=== PATIENT | female | born 1945 | race Caucasian/White ===

== ENCOUNTER 2019-01-22 06:26 | Day surgery (SDC) | payer OTHER ==
[2019-01-22] MEDS ORDERED: Ringers Lactate 1,000 ML IV ONE (06:51)
[2019-01-22] MEDS ORDERED: propofoL 200 MG/20 ML VIAL IV ONE (08:30)
[2019-01-22] MEDS ORDERED: LIDOCAINE 1% MPF 5 ML VIAL ONE (08:30)
--- NOTE | 2019-01-22 09:15 | ENDO RPT ---
[address], [address] EGD PROCEDURE REPORT EXAM DATE: 01/22/2019 PATIENT NAME: Sabrina Pool MR#: [id number] BIRTHDATE: 1945 ATTENDING: Kaleb Daniel Dr STATUS: outpatient YIELD ANALYST: Agustina Wahl INDICATIONS: The patient is a 73 yr old Female here for an EGD due to dysphagia, abnormal modified barium swallow / esophagram revealing an hypertrophied cricopharyngeal muscle / bar PROCEDURE PERFORMED: EGD with injection of Botox MEDICATIONS: Per Anesthesia. TOPICAL ANESTHETIC: none CONSENT: The patient understands the risks and benefits of the procedure and understands that these risks include, but are not limited to: sedation, allergic reaction, infection, perforation and/or bleeding. Alternative means of evaluation and treatment include, among others: physical exam, x-rays, and/or surgical intervention. The patient elects to proceed with this endoscopic procedure. DESCRIPTION OF PROCEDURE: During intra-op preparation period all mechanical medical equipment was checked for proper function. Hand hygiene and appropriate measures for infection prevention was taken. Procedure, possible complications, and alternatives including but not limited to the possibility of bleeding, perforation, tear, infection, sepsis, need for surgery, need for blood transfusion, and anesthesia related complications were explained to the patient. After the risks, benefits and alternatives of the procedure were thoroughly explained, Informed consent was verified, confirmed and timeout was successfully executed by the treatment team. The patient was placed in the left lateral position. The patient was anesthetized with topical anesthesia. Through the anesthetized oropharyngeal area, the scope was passed without any difficulty. The EG-[id number] ([id number]) endoscope was introduced through the mouth and advanced to the second portion of the duodenum. Retroflexed views revealed no abnormalities. The gastroscope was then slowly withdrawn and removed. 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 ADVERSE EVENTS: There were no complications. 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 acid suppression therapy 2. anti-reflux regimen REPEAT EXAM: Kaleb Daniel Dr eSigned: Kaleb Daniel Dr 01/22/2019 9:14 AM cc: Kaleb Stevenson CPT CODES: ICD9 CODES: PATIENT NAME: Sabrina Pool MR#: [id number]
[2019-01-22 09:32] VITALS: BP 104/51; TEMP 97.2; O2SAT 99
== END 2019-01-22 09:32 | disposition home or self-care (01) ==
LOC: OR 06:26
PROVIDERS: ATTEND Internal Medicine Gastroenterology
PROC: 3E0G8GC Introduction of Other Therapeutic Substance into Upper GI, Via Natural or Artificial Opening Endoscopic (ICD-10-PCS; principal; 2019-01-22 08:15)
DX: K22.2 Esophageal obstruction (principal); K21.9 Gastro-esophageal reflux disease without esophagitis; D50.9 Iron deficiency anemia, unspecified; K50.90 Crohn's disease, unspecified, without complications; M81.0 Age-related osteoporosis without current pathological fracture; Z88.6 Allergy status to analgesic agent; Z90.49 Acquired absence of other specified parts of digestive tract; Z85.828 Personal history of other malignant neoplasm of skin; Z87.891 Personal history of nicotine dependence
CPT/HCPCS: 43236; J2704; J7120

== ENCOUNTER 2021-02-01 05:29 | Day surgery (SDC) | payer OTHER ==
[2021-01-28 13:57] LABS: Absolute Lymphocytes (CBC) 1.1 K/uL (0.7-4.9); Basophils % 0.5 % (0-1.3); Lymphocytes % 12.7 % (15.3-44.8); MPV 8.3 fL (7.6-11.3)
--- NOTE | 2021-01-28 13:58 | RAD REPORT ---
EXAM DESCRIPTION: RAD - Chest Pa And Lat (2 Views) - 01/28/2021 1:53 pm CLINICAL HISTORY: preop COMPARISON: Chest Pa And Lat (2 Views) dated 01/28/2019; Chest Pa And Lat (2 Views) dated 05/11/2017; Chest Pa And Lat (2 Views) dated 11/18/2016; Chest Pa And Lat (2 Views) dated 09/29/2016 FINDINGS: Lines: None. Lungs: No evidence of edema or pneumonia. Emphysema. Pleural: No significant pleural effusions or pneumothorax. Cardiac: The heart size is within normal limits. Bones: No acute fractures. Other: IMPRESSION: Emphysema without superimposed acute process.
[2021-01-28 14:07] LABS: Protime INR 0.9
[2021-01-28 14:18] LABS: Potassium 4.2 mmol/L (3.5-5.1)
--- NOTE | 2021-01-30 17:03 | EKG ---
Test Date: 2021-01-28 Test Time: 13:00:50 Gear Changer: MYCHAL MEASUREMENT RESULTS: Intervals: Rate: 69 LA: 130 QRSD: 76 QT: 388 QTc: 415 [place]: P: 54 LA: 130 QRS: 35 T: 54 INTERPRETIVE STATEMENTS: Normal sinus rhythm Normal ECG Compared to ECG 01/30/2019 11:51:01 No significant changes Electronically Signed On 01-30-21 17:00:15 RIVETER PORTABLE MACHINE by Roc Raphael
[2021-02-01] MEDS ORDERED: CEFAZOLIN/NS 1gm 1 GM/50 ML BAG ONE (05:33)
[2021-02-01] MEDS ORDERED: Ringers Lactate 1,000 ML IV ONE ×2 (05:33→08:33)
[2021-02-01] MEDS ORDERED: LIDOCAINE 1% MPF 5 ML VIAL ONE (06:01)
[2021-02-01] MEDS ORDERED: FENTANYL CITR 100 MCG/2 ML ONE (06:01)
[2021-02-01] MEDS ORDERED: dexAMETHasone 4 MG/ML VIAL ONE (06:02)
[2021-02-01] MEDS ORDERED: MIDAZOLAM HCL 2 MG/2 ML INJ ONE (06:02)
[2021-02-01] MEDS ORDERED: ROPLVACAINE HCL 40 ML ONE (06:02)
[2021-02-01] MEDS ORDERED: propofoL 200 MG/20 ML VIAL IV ONE (06:53)
[2021-02-01] MEDS ORDERED: LIDOCAINE 2% MPF 5 ML VIAL ONE (06:54)
[2021-02-01] MEDS ORDERED: EPHEDRINE SULF 50 MG/ML VIAL ONE (07:35)
--- NOTE | 2021-02-01 08:29 | P.BOP ---
Preoperative diagnosis: left distal radius fracture Postoperative diagnosis: same Primary procedure: ORIF left distal radius fracture Lawn Specialist: NONE,NONE Estimated blood loss: 5 cc Specimen: none Findings: see dictation Anesthesia: General Complications: None Implants: Acumed 3 hole distal radius locking plate Fluids & blood products: TT: 43 mins @ 250 mmHg Transferred to: Recovery Room Condition: Good
[2021-02-01 08:52] VITALS: O2SAT 97
--- NOTE | 2021-02-01 09:09 | RAD REPORT ---
EXAM DESCRIPTION: RAD - Wrist Left 2 View - 02/01/2021 9:03 am CLINICAL HISTORY: s/p ORIF of L wrist COMPARISON: Wrist Left 2 View dated 02/01/2021; Wrist Left 3 View dated 04/03/2018 FINDINGS/IMPRESSION: Status post plate and screw fixation of a distal radial fracture. Alignment is anatomic. No evidence of immediate hardware complications. Ulnar styloid fracture also noted.
[2021-02-01 09:57] VITALS: BP 110/65; TEMP 97
--- NOTE | 2021-02-01 10:32 | RAD REPORT ---
EXAM DESCRIPTION: RAD - Wrist Left 2 View - 02/01/2021 9:03 am CLINICAL HISTORY: ORIF LEFT DISTAL RADIUS FX COMPARISON: Wrist Left 3 View dated 04/03/2018 FINDINGS/IMPRESSION: Fourteen intraoperative fluoroscopic images were submitted showing ORIF of the distal radius with plate and screw. Fluoro time: 0.1 minutes Dose: 0.283 mGy
--- NOTE | 2021-02-02 10:06 | OP ---
Date of Procedure: 02/01/2021 Surgeon: Stephane Yanez MD Preoperative Diagnosis: Left distal radius fracture. Postoperative Diagnosis: Left distal radius fracture. Procedure Performed: Open reduction and internal fixation, left distal radius fracture. Anesthesia: General LMA. Fluids: Per Anesthesia record. Estimated Blood Loss: 5 cc. Complications: None. Implants: A 3-hole Acumed narrow distal radius locking plate. Tourniquet Time: 43 minute at 250 mmHg. Indication For Procedure: Sabrina is a 75-year-old female who presented to my clinic with signs, symptom s and x-ray findings consistent with a displaced unstable distal radius fracture. I discussed with t perry patient at length risks and benefits associated with operative and nonoperative treatment. She ex pressed understanding and elected to proceed with operative treatment. Description Of Procedure: After informed consent was obtained, the patient was identified in the pre operative holding area. The left upper extremity was marked. The patient was then brought to PACU, where she underwent a left-sided interscalene block for postoperative anesthesia. She was then taken to the operating room, transferred to the operating table in a supine fashion, placed under general LMA anesthesia. The left upper extremity was then prepped and draped in the usual sterile fashion. A time-out was initiated. The correct patient and procedure were confirmed and identified. The mina ent did receive her preoperative prophylactic antibiotic. The left upper extremity was then exsangui nated using an Esmarch and the tourniquet was inflated to 250 mmHg. Approximately, a 10 cm longitudi nal incision was made over the FCR tendon consistent with a volar approach to the distal radius. FCR tendon sheath was noted. It was opened. FCR tendon was gently retracted radially. The floor of th e tendon sheath was then opened using Metzenbaum. Blunt dissection was then taken down to the distal radius. The pronator quadratus was encountered, elevated off the distal radius using a 15 blade owen vator. The fracture was identified. The fracture was then reduced using traction and manipulation a nd K-wire was then placed to hold temporary reduction of the fracture. Fluoroscopy was then used to ensure proper reduction was maintained. A 3-hole narrow Acumed distal radius locking plate was then placed on the distal radius. Proper positioning was then confirmed using fluoroscopy and was pinned into position. The 3.5 cortical shaft screw was placed to hold the reduced plate to the fracture to the proximal segment followed by placement of 5 distal locking screws using unicortical locking fixat ion. Two remaining proximal shaft screws were then placed using 3.5 cortical screws. Fluoroscopy wa s then used to ensure proper reduction and placement of the screws which was confirmed. Wound was th en irrigated thoroughly with normal saline. Subcutaneous tissue was approximated using a 2-0 Vicryl. Skin was approximated using a 3-0 nylon. Sterile dressings were applied. The patient was placed i n a volar splint, awakened, and transferred to PACU in stable condition. Postoperative Plan: She will be nonweightbearing of the left upper extremity. She will follow up in clinic 2 weeks for wound check and suture removal. CV/MODL Voice ID: [id number] Report ID: [id number]
== END 2021-02-01 10:01 | disposition home or self-care (01) ==
LOC: OR 05:29
PROVIDERS: ATTEND Orthopaedic Surgery Sports Medicine
PROC: 0PSJ04Z Reposition Left Radius with Internal Fixation Device, Open Approach (ICD-10-PCS; principal; 2021-02-01 07:00)
DX: S52.502A Unspecified fracture of the lower end of left radius, initial encounter for closed fracture (principal); Z20.822 Contact with and (suspected) exposure to COVID-19
CPT/HCPCS: 93005; 85025; 80048; 36415; 85610; 85730; 71046; 73100 ×2; 25607; U0003; J2704; J1100; J2250; J3010; J2795; J0690; J7120 ×2

== ENCOUNTER 2022-06-30 19:11 | Emergency (ER) | payer OTHER ==
--- OUTSIDE RECORDS SUMMARY | 2022-06-30 19:16 | XMS REPORT | Continuity of Care Document ---
:1945 [facility] t Address [address] [facility] [address] [place] [address] Care Team Providers Name Role Phone Asked, No Pcp Primary Care Physician Unavailable Kaleb Stevenson Attending Clinician Unavailable STEPHANE BURNHAM Attending Clinician Unavailable MARIA C CONN Attending Clinician Unavailable Yoel Gallego Attending Clinician Unavailable DIONTE REYES Attending Clinician Unavailable 2, Adc Infusion Chair Attending Clinician Unavailable Maria C Conn MD Attending Clinician Doctor Unassigned, [place] Attending Clinician Unavailable YOEL GALLEGO Attending Clinician Unavailable Dionte Reyes MD Attending Clinician [phone] Stephane Burnham MD Attending Clinician Only, Adc Test Attending Clinician Unavailable Pob, Adc Lab Main Attending Clinician Unavailable STEPHANE BURNHAM Admitting Clinician Unavailable Yoel Gallego Admitting Clinician Unavailable Stephane Burnham MD Admitting Clinician Payers Payer Name Policy Type Policy Number Effective Date Expiration Date S carmelita [employer]ET[employer] MEDICARE ADV [id number] 2014 00:00:00 [employer] DENEEN PPO 5 [id number] 2021 00:00:00 Problems This patient has no known problems. Allergies, Adverse Reactions, Alerts Allergy Allergy Status Severity Reaction(s) Onset Inactive Treating Comm ents Source Name Type Date Date Clinician FERICIT DA Active U 'PASSED OUT' [facility] 1-16 [facility] 00:[facility]: [facility] [place] Hydrocod Propensi Active Itching Unive rs one ty to 04-07 ity of adverse 00:00: [place] reaction 00 Medical s Branch Oxycodon Propensi Active Rash Univer s e-Aspiri ty to 04-07 ity of n adverse 00:00: [place] reaction 00 Medical s Branch HYDROCOD DRUG Active ITCHING Univers ONE INGREDI 04-07 ity of 00:00: [place] 00 Medical Branch OXYCODON DRUG Active Rash Univers E-ASPIRI 04-07 ity of N 00:00: [place] 00 Medical Branch Hydrocod Propensi Active Other (See Me thodi one ty to Comments) 09-08 adverse 00:00: Hospita reaction 00 l s to drug Oxycodon Propensi Active Rash Method i e-Aspiri ty to 09-08 n adverse 00:00: Hospita reaction 00 l s to drug hydrocod DA Active U [facility] one 1-21 Woman's 00:00: [facility] [place] oxycodon DA Active U [facility] e 1-21 Woman[facility] 00:00: [facility] [place] .TUAN DA Active U PUS AND 2007- [facility] SWELLING 0-29 Woman[facility] 00:00: [facility] [place] HYDROCOD DA Active U ITCH 2007-02 [facility] ONE 0-29 Woman's 00:00: [facility] 00 [facility] [place] No Known DA Active U 2007-02 [facility] Contrast 0-29 Woman's Allergie 00:00: Hospita s 00 l of [place] No Known DA Active U 2007- [facility] Food 0-29 Woman's Allergie 00:00: [facility]osp[facility] s [facility] [place] PERCODAN DA Active U ITCH 2007- [facility] 0-29 Woman's 00:00: [facility] 00 [facility] [place] NO KNOWN Drug Active Univers ALLERGIE Class ity of S [facility] Social History Social Habit Start Date Stop Date Quantity Comments Source History of tobacco Current smoker Un iversity of use [facility] Gender [facility] Exposure to 2022-02-21 2022-03-03 Not sure [place] of SARS-CoV-2 (event) 00:00:00 11:34:00 [facility] Tobacco use and 2020-04-07 2020-04-07 Smokeless Universit y of exposure 00:00:00 00:00:00 tobacco non-user [facility] [place] [facility] Tobacco Comment 2020-04-07 2020-04-07 quit 17 years Univer sity of 00:00:00 00:00:00 ago [facility] Sex Assigned At [birth year] [facility] Smoking Status Start Date Stop Date Source Tobacco smoking [facility] consumption unknown Ex-smoker 2020-04-07 00:00:00 2020-04-07 [place] [facility] f [place] 00:00:00 [facility] Branch Medications Ordered Filled Start Stop Current Ordering Indication Dosage Frequency Signature Comments Components Source Medication Medication Date Date Medication? Clinician (SIG) Name Name vedolizumab 2022- No [id number] 300mg 300 mg, IV Univers (ENTYVIO) 03-03 Infusion, ity of 300 mg in 17:36: 18:58 ONCE, 1 [place] NaCl 0.9% 00 :00 dose, On Medica l (NS) 250 mL Susan Branch IV infusion 03/03/22 at 1145, Administer over 30 Minutes, 250 mL glucagon 2021-02- No 1mg Methodi injection 1 02-20 st mg 21:45: 21:51 Hospita 00 :00 l glucagon 2021-02- No 1mg Methodi injection 1 02-20 st mg 21:45: 21:51 Hospita 00 :00 l glucagon 2021-02- No 1mg Methodi injection 1 02-20 st mg 21:45: 21:51 Hospita 00 :00 l glucagon 2021-02- No 1mg Methodi injection 1 02-20 st mg 21:45: 21:51 Hospita 00 :00 l temazepam Yes 30mg Take 30 mg Un yudi 30 mg 2-24 by mouth ity of capsule 22:50: at bedtime [place] 36 as needed. Medical Branch nortriptyli Yes 25mg Take 25 mg Univers ne 25 mg 2-24 by mouth 3 ity o f capsule 22:50: (three) [place] 36 times Medical daily. Branch famotidine Yes Take by [facility] ers (PEPCID AC 2-24 mouth. ity of ORAL) 22:50: [place] 36 [facility] loperamide Yes Take by [facility] ers HCl 2-24 mouth. ity of (IMODIUM 22:50: [place] A-D ORAL) 36 [facility] water for Yes PRN, Univers irrigation 2-24 Starting ity o f irrigation 21:54: Mon [place] solution 00 04/08/20 at Medic al [facility]4, [place] Until Discontinu ed, Routine, Intra-op sodium Yes PRN, Univers chloride 2-24 Starting ity of (NS) 21:54: Mon [place] injection 00 04/08/20 at [facility] kelly 1554[facility] Until Discontinu ed, Routine, Intra-op neomycin-po Yes PRN, Univer s lymyxin-dex 2-24 Starting ity of amethasone 21:53: Mon [place] (MAXITROL) 04/08/20 at [facility] ical [address] [place] [address] mg/g-10,000 Until unit/g-0.1 Discontinu % ed, ophthalmic Routine, ointment Intra-op gentamicin Yes PRN, Univers injection 2-24 Starting ity of 21:53: Mon [place] 00 04/08/20 at [place] [id number] Until Discontinu ed, KRISHNA, Intra-op carbachoL Yes PRN, Univers (MIOSTAT) 2-24 Starting ity of 0.01 % 21:53: Mon [place] intraocular 00 04/08/20 at Wy dical injection 1553[facility] Until Discontinu ed, Routine, Intra-op EPINEPHrine Yes PRN, Univer s 1:1,000 (1 2-24 Starting ity o f mg/mL) 21:52: Mon [place] (ADRENALIN) 00 04/08/20 at Wy dical injection 1552[facility] Until Discontinu ed, Routine, Intra-op DUOVISC 0 Yes PRN, Univers (DUOVISC 2-24 Starting ity of VISCO 21:52: Wed [place] ELASTIC) 3 00 04/08/20 at [facility] ical %-4 %(0.5 1552, Branch mL) 1 % Until (0.55 mL) Discontinu intraocular ed, injection Routine, Intra-op ceFAZolin Yes PRN, Univers (ANCEF) 2-24 Starting ity of injection 21:47: [facility] 04/08/20 at [facility] 1547, [place] Until Discontinu ed, KRISHNA, Intra-op balanced Yes PRN, Univers salt irrig 24 Starting ity o f soln comb1 21:47: [facility] (BSS PLUS) 00 04/08/20 at [facility] ical ophthalmic 1547, [place] solution Until 500 mL bag Discontinu ed, Routine, Intra-op eye block Yes PRN, Univers syringe 11 04-08 Starting ity o f mL 21:46: Mon [place] 04/08/20 at [facility] 1546, [place] Until Discontinu ed, Intra-op Hyaluronida Yes PRN, Univer s se, Human 04-08 Starting ity of Recomb. 21:46: Mon [place] (HYLENEX) 04/08/20 at [facility] injection 1546, [place] Until Discontinu ed, Routine, Intra-op mydriatic 2020- No .5mL 0.5 mL, [facility] ers #5 04-08 Right Eye, ity of ophthalmic 20:00: 19:53 ONCE, 1 Marcel as solution 00 :00 dose, Mon Medica l 0.5 mL 04/08/20 at [place] syringe 1400, Routine, DSU Pre-op lactated 2021- No 1000mL at 42 Univ rs ringers IV - 02-24 mL/hr, ity of infusion 19:45: 19:53 1,000 mL, Marcel as 1,000 mL 00 :00 IV Medical Infusion, [place] ONCE, 1 dose, 04/08/20 at 1345, Routine, DSU Pre-op famotidine Yes Take by [facility] ers (PEPCID AC -24 mouth. ity of ORAL) 16:50: [address] loperamide Yes Take by [facility] ers HCl -24 mouth. ity of (IMODIUM 16:50: [place] A-D ORAL) [address] [place] [address] temazepam 0 Yes 30mg Take 30 mg Un yudi 30 mg 2-24 by mouth ity of capsule 16:50: at bedtime [place] 36 as needed. Medical Branch nortriptyli 0 Yes 25mg Take 25 mg Univers ne 25 mg 2-24 by mouth 3 ity o f capsule 16:50: (three) [place] 36 times Medical daily. Branch famotidine 0 Yes Take by Univ ers (PEPCID AC 2-24 mouth. ity of ORAL) 16:50: [place] 36 Medical Branch loperamide 0 Yes Take by Univ ers HCl 2-24 mouth. ity of (IMODIUM 16:50: [place] A-D ORAL) 36 Medical Branch temazepam 0 Yes 30mg Take 30 mg Un yudi 30 mg 2-24 by mouth ity of capsule 16:50: at bedtime [place] 36 as needed. Medical Branch nortriptyli 0 Yes 25mg Take 25 mg Univers ne 25 mg 2-24 by mouth 3 ity o f capsule 16:50: (three) [place] 36 times Medical daily. Branch famotidine 0 Yes Take by Univ ers (PEPCID AC 2-24 mouth. ity of ORAL) 16:50: [place] 36 Medical Branch loperamide 2020-0 Yes Take by Univ ers HCl 2-24 mouth. ity of (IMODIUM 16:50: [place] A-D ORAL) 36 Medical Branch temazepam 0 Yes 30mg Take 30 mg Un yudi 30 mg 2-24 by mouth ity of capsule 16:50: at bedtime [place] 36 as needed. Medical Branch nortriptyli 0 Yes 25mg Take 25 mg Univers ne 25 mg 2-24 by mouth 3 ity o f capsule 16:50: (three) [place] 36 times Medical daily. Branch famotidine 2020-0 Yes Take by Univ ers (PEPCID AC 2-24 mouth. ity of ORAL) 16:50: [place] 36 Medical Branch loperamide 2020-0 Yes Take by Univ ers HCl 2-24 mouth. ity of (IMODIUM 16:50: [place] A-D ORAL) 36 Medical Branch temazepam 2020-0 Yes 30mg Take 30 mg Un yudi 30 mg 2-24 by mouth ity of capsule 16:50: at bedtime [place] 36 as needed. Medical Branch nortriptyli Yes 25mg Take 25 mg Univers ne 25 mg 2-24 by mouth 3 ity o f capsule 16:50: (three) [place] 36 times Medical daily. Branch dexamethaso Yes PRN, Univer s ne 2-24 Starting ity of (DECADRON 06:03: Wed [place] PHOSPHATE) 00 04/08/20 at Med ical injection 0003, Branch Until Discontinu ed, Routine, Intra-op Vital Signs Vital Name Observation Time Observation Value Comments Source Systolic blood 2022-03-03 17:33:00 132 mm[Hg] Univer sity of [facility] Diastolic blood 2022-03-03 17:33:00 55 mm[Hg] Unive rsity of [facility] Heart rate 2022-03-03 17:33:00 70 /min [facility] Body temperature 2022-03-03 17:33:00 36.33 Jessica [facility] Respiratory rate 2022-03-03 17:33:00 18 /min [facility] Body height 2022-03-03 17:33:00 157.5 cm [facility] Body weight 2022-03-03 17:33:00 56.246 kg [facility] BMI 2022-03-03 17:33:00 22.68 kg/m2 [facility] Oxygen saturation in 2022-03-03 17:33:00 99 /min University of Arterial blood by [place] [facility] Pulse oximetry Branch Systolic blood 2020-04-08 22:30:00 121 mm[Hg] Univer sity of [facility] Diastolic blood 2020-04-08 22:30:00 56 mm[Hg] Unive rsity of [facility] Heart rate 2020-04-08 22:30:00 65 /min [facility] Respiratory rate 2020-04-08 22:30:00 15 /min [facility] Oxygen saturation in 2020-04-08 22:30:00 99 /min University of Arterial blood by [place] [employer] kelly Pulse oximetry Branch Body temperature 2020-04-08 22:25:00 36.67 Jessica Univ ersity [facility] [place] [facility] Body height 2020-04-03 15:26:00 157.5 cm [facility] Body weight 2020-04-03 15:26:00 50.803 kg [facility] BMI 2020-04-03 15:26:00 20.49 kg/m2 [facility] Body height 2021-12-21 21:43:00 154.9 cm [facility] Body weight 2021-12-21 21:43:00 52.617 kg [facility] BMI 2021-12-21 21:43:00 21.92 kg/m2 [facility] Procedures Procedure Date / Time Performed Performing Clinician Vinnie lam [id number] 2022-06-14 00:00:00 [facility] [id number] 2022-06-13 00:00:00 [facility] [id number] 2022-06-13 00:00:00 [facility] [id number] 2022-06-13 00:00:00 [facility] [id number] 2022-06-13 00:00:00 [facility] [id number] 2022-06-13 00:00:00 [facility] INFUSION THERAPY 2022-03-03 06:01:00 Doctor Unassigned, No Unive [facility] PHYSICIAN ORDERS 2022-02-15 06:01:00 Doctor Unassigned, No Unive [facility] MRI PELVIS W WO 2021-12-21 22:01:[address] [facility] CONTRAST Jeff MRI ABDOMEN W WO 2021-12-21 22:01:[address] [facility] SHERON Aguilar REPORT OF 2021-12-02 05:01:00 [facility] 2020-04-06 22:07:17 Doctor Unassigned, No [facility] Plan of Care Planned Activity Planned Date Details Comments Source Future Scheduled 2022-06-28 COVID-19 VACCINE (#1) [facility] Test 09:19:26 [code = COVID-19 VACCINE (#1)] Future Scheduled 2022-06-28 65+ [facility]OCOCCAL [facility] Test 09:19:26 VACCINE (1 - PCV) [code = 65+ PNEUMOCOCCAL VACCINE (1 - PCV)] Future Scheduled 2022-06-28 [facility] C [facility] Test 09:19:26 (procedure) [code = 065498396] Future Scheduled 2022-06-28 SHINGLES VACCINES (1 Met [facility] Hospital Test 09:19:26 of 2) [code = SHINGLES VACCINES (1 of 2)] Future Scheduled 2022-06-28 COLONOSCOPY SCREENING [facility] Test 09:19:26 [code = COLONOSCOPY SCREENING] Future Scheduled 2022-06-28 INFLUENZA VACCINE [facility] Test 09:19:26 [code = INFLUENZA VACCINE] Future Scheduled 2022-05-17 COVID-19 VACCINE (#1) [facility] Test 13:56:35 [code = COVID-19 VACCINE (#1)] Future Scheduled 2022-05-17 65+ [facility]OCOCCAL [facility] Test 13:56:35 VACCINE (1 - PCV) [code = 65+ PNEUMOCOCCAL VACCINE (1 - PCV)] Future Scheduled 2022-05-17 Hep[facility] C screening [facility] Test 13:56:35 (procedure) [code = 598449021] Future Scheduled 2022-05-17 SHINGLES VACCINES (1 [facility] Hospital Test 13:56:35 of 2) [code = SHINGLES VACCINES (1 of 2)] Future Scheduled 2022-05-17 COLONOSCOPY SCREENING [facility] Test 13:56:35 [code = COLONOSCOPY SCREENING] Future Scheduled 2022-05-17 INFLUENZA VACCINE Method ist Hospital Test 13:56:35 [code = INFLUENZA VACCINE] Future Scheduled 2022-05-17 COVID-19 VACCINE (#1) [facility] Test 13:56:35 [code = COVID-19 VACCINE (#1)] Future Scheduled 2022-05-17 65+ [facility]UMOCOCCAL [facility] Test 13:56:35 VACCINE (1 - PCV) [code = 65+ PNEUMOCOCCAL VACCINE (1 - PCV)] Future Scheduled 2022-05-17 [facility] C screening [facility] Test 13:56:35 (procedure) [code = 157634356] Future Scheduled 2022-05-17 SHINGLES VACCINES (1 [facility] Hospital Test 13:56:35 of 2) [code = SHINGLES VACCINES (1 of 2)] Future Scheduled 2022-05-17 COLONOSCOPY SCREENING [facility] [place] Test 13:56:35 [code = COLONOSCOPY SCREENING] Future Scheduled 2022-05-17 INFLUENZA VACCINE Method is Hospital Test 13:56:35 [code = INFLUENZA VACCINE] Future Scheduled 2022-02-09 COVID-19 VACCINE (#1) [facility] Hospital Test 10:10:27 [code = COVID-19 VACCINE (#1)] Future Scheduled 2022-02-09 65+ PNEUMOCOCCAL Methodi Hospital Test 10:10:27 VACCINE (1 - PCV) [code = 65+ PNEUMOCOCCAL VACCINE (1 - PCV)] Future Scheduled 2022-02-09 Hepatitis C screening [facility] [place] Test 10:10:27 (procedure) [code = 029326063] Future Scheduled 2022-02-09 SHINGLES VACCINES (1 [facility] Hospital Test 10:10:27 of 2) [code = SHINGLES VACCINES (1 of 2)] Future Scheduled 2022-02-09 COLONOSCOPY SCREENING [facility] [place] Test 10:10:27 [code = COLONOSCOPY SCREENING] Future Scheduled 2022-02-09 INFLUENZA VACCINE Method [facility] Hospital Test 10:10:27 [code = INFLUENZA VACCINE] Encounters Start End Encounter Admission Attending Care Care Encounter Source Date/Time Date/Time Type Type Clinicians Facility Department ID 2021-11-13 Outpatient [facility] [id number] [place] 08:19:[address] [place] [address] 2021-03-12 [facility] [id number] Common 08:17:01 Kaleb [facility] 2021-03-10 Outpatient Stevenson, [facility] [id number] Common 14:39:05 Kaleb [facility] 2021-03-10 Outpatient Stevenson, [facility] [id number] Common 14:31:23 Kaleb [facility] 2021-03-10 Outpatient Stevenson, [facility] [id number] Common 14:30:44 Kaleb [facility] 2021-03-10 Outpatient Stevenson, STLMLC STLMLC [id number] Common 14:25:36 Kaleb [address] [facility] 2020 Outpatient Eloisa BURNHAM [facility] TARA [id number] Univers 00:36:01 STEPHANE [facility] 2022-07-07 2022-07-07 [facility] [id number] Univers 11:30:00 11:30:00 MARIA C [facility] 2022-06-13 2022-06-17 Inpatient HARVINDER Gallego [facility] MEDI.01 [id number] [facility] 05:14:00 12:24:00 Yoel [facility] 2022-06-03 2022-06-03 Outpatient HARVINDER Gallego [facility] 3DAY [id number] [facility] 08:00:00 09:00:00 Yoel 14 [facility] 2022-05-26 2022-05-26 [facility] [id number] Univers 11:30:00 11:30:00 MARIA C castro [facility] 2022-04-24 2022-04-24 Outpatient ALMA REYES [id number] [place] 00:00:00 00:00:00 DIONTE nash 2022-04-20 2022-04-20 Outpatient HARVINDER Gallego [facility] 3DAY [id number] [facility] 08:00:00 09:00:00 Yoel 84 [facility] 2022-04-14 2022-04-14 Outpatient Eloisa CONN, [facility] [id number] Univers 11:30:00 11:30:00 MARIA C castro [facility] 2022-03-14 2022-03-15 Inpatient HARVINDER Gallego [facility] MEDI.01 [id number] [facility] 05:01:00 17:46:00 Yoel 02 [facility] 2022-03-03 2022-03-03 Nurse 2, Adc Infusion Chair [facility] 1.2. [id number] Univers 11:30:00 12:30:00 Visit Maria C Conn 350.1.13.10 [facility] 4.2.7.2.686 [place] [id number] [place] [id number] Branch 2022-03-03 2022-03-03 Outpatient Eloisa CONN [facility] [id number] [facility] 11:30:00 11:30:00 MARIA C itcastro of [facility] 2022-03-03 2022-03-03 Orders Doctor KNOX [id number] Univers 00:00:00 00:00:00 Only Unassigned, LAWRENCE [id number] ity of [place] [facility] 4.2.7.2.686 Marcel as [id number] [facility] 009 Branch 2022-02-15 2022-02-15 Orders Doctor KNOX [id number] [place] [address] 00:00:00 00:00:00 Only Unassigned, LAWRENCE [id number] ity of [place] [facility] 4.2.7.2.686 Marcel as [phone] [address] 2021-12-21 2021-12-21 Outpatient [facility] [id number] [address] [place] [address] 00:00:00 00:00:00 YOEL 995 Method i 2021-12-21 2021-12-21 Outpatient [facility] [id number] [place] [address] 00:00:00 00:00:00 YOEL [address] 2021-12-07 2021-12-07 Transcribe Lily, 1.2.840.1 [id number] Methodi 00:00:00 00:00:00 Orders Yoel Magana [id number] [facility] 3.430.2.7 Hospit a .[id number] l .8 2021-12-02 2021-12-02 Orders Doctor KNOX 1.2.840.[id number] [place] [address] 00:00:00 00:00:00 Only Unassigned, LAWRENCE [id number] ity of [place] [facility] 4.2.7.2.686 Marcel as [phone] [facility] 009 [place] 2021-09-21 2021-09-21 Office David Reyes 1.2.840.114 [id number] [place] 11:00:00 11:30:00 Visit Dionte Miller 350.1.13.13 [place] 1.2.7.2.686 [id number] 2020-04-08 2020-04-08 [facility] [id number] Univers 13:00:00 16:46:00 Encounter Stephane Costa 350.1.13.10 ity of [place] 4.2.7.2.686 [place] Surgical [id number] [facility] 071 Branch 2020-04-07 2020-04-07 [facility] [id number] Univers 10:15:00 10:15:00 [facility] 2020-04-06 2020-04-06 [facility] [id number] Univers 17:15:00 17:15:00 [facility] 2020-04-06 2020-04-06 Laboratory Only, Adc Test [facility] 1.2.840. 114 [id number] Univers 16:23:21 16:38:21 Only Stephane Burnham 350.1.13.1 0 ity of [place] 4.2.7.2.686 [place] [id number] [facility] 353 [place] 2020-04-06 2020-04-06 Marble Setter Noe, Adc Lab Main [facility] 1.2.8 [id number] [id number] Univers 16:16:57 16:31:57 Visit Stephane Burnham 350.1.13.1 0 ity of [place] 4.2.7.2.686 [place] Professio [phone] Wy dical [facility] 353 Branch [facility] 2020-04-06 2020-04-06 Orders Doctor LISETTE 1.2.840.114 [id number] Univers 00:00:00 00:00:00 Only Unassigned, LAWRENCE 350.1.13.10 ity of [place] [facility] 4.2.7.2.686 Marcel as [phone] [facility] 009 Branch 2020-04-03 2020-04-03 Outpatient R [facility] [id number] Univers 11:45:00 11:45:00 STEPHANE hunt [facility] Results Test Description Test Time Test Comments Results Result Comments Source BASIC METABOLIC PANEL 2022-06-17 06:27:00 Test Item Value Reference Range Interpretation Comme nts SODIUM (test code = NA) 138 mEq/L 135-145 N POTASSIUM (test code = K) 3.9 mEq/L 3.5-5.0 N CHLORIDE (test code = CL) 106 mEq/L 100-115 N CARBON DIOXIDE (test code = 18 mEq/L 22-31 L CO2) ANION GAP (test code = GAP) 17.70 10-20 N GLUCOSE (test code = GLU) 72 mg/dL 65-110 N BLOOD UREA NITROGEN (test code 17 mg/dL 7-18 N = BUN) GLOMERULAR FILTRATION RATE 58 ml/min >60 L T he Glomerular Filtration Rate is (test code = GFR) a calculat ed parameterbased on serum Creatinin e, patient age and sex. GFR values less than 60 mL/min/1.73 squ are meters are indicative ofCh ronic Kidney Disease. Values less than 15 mL/min/1.73squa re meters indicate Kidney failure. The calculation forGFR is based on the CKD-EPI (2020) calculat ion. This formulais race indifferen t and is the recommended for fidelia for GFRby the National Kidney Foundation for Adults.The GFR will not calculate if the sex is u nknown or if thepatient's ag e is <18 years. CREATININE (test code = CREAT) 1.0 mg/dL 0.5-1.0 N CALCIUM (test code = CA) 8.0 mg/dL 8.4-10.2 L [id number] 06:27:00 Test Item Value Reference Range Interpretation Comments MAGNESIUM (test code = MAG) 1.8 mg/dL 1.8-2.4 N CBC W/AUTO [id number] 06:06:00 Test Item Value Reference Range Interpretation Comments WHITE BLOOD CELL (test code = WBC) 11.2 K/mm3 6.5-12.3 N RED BLOOD CELL (test code = RBC) 2.72 M/mm3 3.51-4.69 L HEMOGLOBIN (test code = HGB) 7.9 g/dL 10.1-13.8 L HEMATOCRIT (test code = HCT) 25.3 % 32.5-41.8 L MEAN CELL VOLUME (test code = MCV) 93.0 fL 84.6-96.6 N MEAN CELL HGB (test code = MCH) 29.0 pg 27.3-33.9 N MEAN CELL HGB CONCETRATION (test 31.2 gm/dL 32.0-34.2 L code = MCHC) RED CELL DISTRIBUTION WIDTH (test 14.5 % 12.2-16.3 N code = RDW) PLATELET COUNT (test code = PLT) 268 K/mm3 134-363 N MEAN PLATELET VOLUME (test code = 10.1 fL 9.2-12.7 N MPV) NEUTROPHIL % (test code = NT%) 79.6 % 57.9-77.3 H LYMPHOCYTE % (test code = LY%) 11.7 % 14.5-29.7 L MONOCYTE % (test code = MO%) 5.4 % 3.6-10.2 N EOSINOPHIL % (test code = EO%) 1.9 % 0.0-3.0 N BASOPHIL % (test code = BA%) 0.6 % 0.1-0.9 N NEUTROPHIL # (test code = NT#) 8.9 K/mm3 LYMPHOCYTE # (test code = LY#) 1.3 K/mm3 MONOCYTE # (test code = MO#) 0.6 K/mm3 EOSINOPHIL # (test code = EO#) 0.21 K/mm3 BASOPHIL # (test code = BA#) 0.1 K/mm3 RBC MORPHOLOGY REQUIRED (test code NORMAL NORMAL = RBCM) PLATELET MORPHOLOGY REQUIRED (test NORMAL NORMAL code = PLTMR) [id number] 15:27:00 Test Item Value Reference Range Interpretation Comments SURGICAL (test code = SR) R UN DATE: 06/16/22 [facility] PAGE 1 RUN TIME: 1528 Specimen Inquiry RUN USER: INTERFACE P ATIENT: JHONY HOLLIS [facility] #: [id number] LOC: CHERRY #: [id number] AGE/SX: 76/F [facility] DR: Yoel Gallego MD : 45 BED: A DIS: STATUS: ADM IN TLOC: SPEC #: [id number] RECD: 06/13/22 STATUS: DAISY ERIC #: [id number] SAUL: 06/13/22-[address]: Yoel Gallego MD ENTERED: 06/13/22 SP TYPE: SURGICAL OTHR DR: ORDERED: ANATOMIC SPEC, SPEC TRACK, [id number] PROCEDURES: [id number] (06/16/22) TISSUES: A. BOWEL, NOS - SMALL BOWEL STRUCTURE AND ILEOCOLIC ANASTOMOSIS FINAL DIAGNOSIS SMALL BOWEL STRICTURE AND ILEOCOLIC ANASTOMOSIS, RESECTION: - Segment of small bowel and colon with anastomosis, areas of mucosal architectural distortion with ulcerations, associated acute inflammation, mucosal chronic inflammation and patchy mural lymphocytic inflammation (mostly seen in small bowel), and focal serosal fibrous adhesions. - No dysplasia or malignancy identified. Comment: Chronic active ileitis is present, and would be compatible with inflammatorybowel disease if clinically correlated. Clinical correlation is suggested. GROSS DESCRIPTION The specimen is received in formalin labeled with the patient's name and "small bowelstricture and ileocolonic anastomosis". Received is an unoriented segment of bowel tissuemeasuring 21.0 cm in length and ranges in diameter from 2.0-3.2 cm. Both margins arestapled. The serosal surface is pink-red in appearance with overlying adhesions at the midaspect of the specimen. No apparent stricture is identified. The attached mesenteric fatmeasures up to 4.1 cm in thickness. The specimen is opened along the anti mesenteric lineand placed into formalin for adequate fixation prior to sectioning.(CAA; 06/13/2022) After adequate fixation, further opening of the specimen reveals distinguishable smallbowel and colonic mucosa. The small bowel measures 10.2 cm in length and ranges indiameter from 1.8-2.0 cm. The colon measures 12.2 cm in length and ranges in diameter from3.0-4.1 cm. The small bowel mucosa displays a slight amount of light buchanan normal-appearingmucosa with normal architectural folds. The remainder of the small bowel displaysred-brown, granular to cobblestone-appearing mucosa over an area of 5.8 x 2.5 cm, which is4.0 cm from the closest margin (small bowel margin). An anastomotic line is identifiedmeasuring 4.1 cm in length. The colonic mucosa is light buchanan with normal architecturalfolds, with no distinct nodules or lesions noted grossly. Sectioning through the attachedmesenteric fat reveals no readily identifiable lymph nodes. The specimen is submittedrepresentatively as follows: A1 proximal margin, en face CONTINUED ON NEXT PAGE R UN DATE: 06/16/22 [facility] PAGE 2 RUN TIME: 1528 Specimen Inquiry RUN USER: INTERFACE S PEC #: [id number] PATIENT: JHONY HOLLIS #[id number] (Continued) GROSS DESCRIPTION (Continued) A2 distal margin, en faceA3-A4 and A8 sales representative cash registers sections of granular patch within small bowelA5 sales representative cash registers sections through anastomotic lineA6 uninvolved small bowelA7 cross-sections of colon.(CAA; 06/14/2022) Technical component performed at [facility] [place] [id number] Immunohistochemical stains and Special Stains are [facility], [address] [place] [address], [address], [place] [address] Unless gross only, the diagnosis is based upon microscopic examination. Immunohistochemistry: This test was developed and its performance characteristicsdetermined by this laboratory. It has not been approved nor does it need approval by [place] FDA. Appropriate positive and negative controls are reviewed and judged to beacceptable. This laboratory is certified under the Clinical Laboratory ImprovementAmendments (CLIA-88) as qualified to perform high complexity clinical laboratory testing. MICROSCOPIC DESCRIPTION Microscopic examination is performed and the findings are incorporated in the diagnosis. No granulomas are noted. CLINICAL INFORMATION 06/13/22, OUT OF BODY 1016, IN FORMALIN 1244, CHRONS DISEASE. ------- Signed _ Benny De Souza 06/16/22 1527 END OF REPORT CBC W/AUTO [id number] 10:22:00 Test Item Value Reference Range Interpretation Comments WHITE BLOOD CELL (test code = WBC) 11.1 K/mm3 6.5-12.3 N RED BLOOD CELL (test code = RBC) 2.85 M/mm3 3.51-4.69 L HEMOGLOBIN (test code = HGB) 8.2 g/dL 10.1-13.8 L HEMATOCRIT (test code = HCT) 25.7 % 32.5-41.8 L MEAN CELL VOLUME (test code = MCV) 90.2 fL 84.6-96.6 N MEAN CELL HGB (test code = MCH) 28.8 pg 27.3-33.9 N MEAN CELL HGB CONCETRATION (test 31.9 gm/dL 32.0-34.2 L code = MCHC) RED CELL DISTRIBUTION WIDTH (test 14.2 % 12.2-16.3 N code = RDW) PLATELET COUNT (test code = PLT) 203 K/mm3 134-363 N MEAN PLATELET VOLUME (test code = 10.7 fL 9.2-12.7 N MPV) NEUTROPHIL % (test code = NT%) 87.3 % 57.9-77.3 H LYMPHOCYTE % (test code = LY%) 6.7 % 14.5-29.7 L MONOCYTE % (test code = MO%) 4.3 % 3.6-10.2 N EOSINOPHIL % (test code = EO%) 0.7 % 0.0-3.0 N BASOPHIL % (test code = BA%) 0.4 % 0.1-0.9 N NEUTROPHIL # (test code = NT#) 9.7 K/mm3 LYMPHOCYTE # (test code = LY#) 0.8 K/mm3 MONOCYTE # (test code = MO#) 0.5 K/mm3 EOSINOPHIL # (test code = EO#) 0.08 K/mm3 BASOPHIL # (test code = BA#) 0.1 K/mm3 RBC MORPHOLOGY REQUIRED (test code NORMAL NORMAL = RBCM) PLATELET MORPHOLOGY REQUIRED (test NORMAL NORMAL code = PLTMR) BASIC METABOLIC [id number] 06:31:00 Test Item Value Reference Range Interpretation Comments SODIUM (test code = 140 mEq/L 135-145 N NA) POTASSIUM (test code 3.3 mEq/L 3.5-5.0 L = K) CHLORIDE (test code 104 mEq/L 100-115 N = CL) CARBON DIOXIDE (test 22 mEq/L 22-31 N code = CO2) ANION GAP (test code 17.50 10-20 N = GAP) GLUCOSE (test code = 73 mg/dL 65-110 N GLU) BLOOD UREA NITROGEN 16 mg/dL 7-18 N (test code = BUN) GLOMERULAR 66 ml/min >60 N The Glomerular FILTRATION RATE Filtration R ate is a (test code = GFR) calculated parameterbased on serum Creatinine, pat ient age and sex. GFR va luesless than 60 mL/min/ 1.73 square meters a re indicative ofCh ronic Kidney Disease. Values less than 15 mL/min/1.73squa re meters indicate Kidney failure. The calculation forGFR is based on the CKD-EPI (2020) calculat ion. This formulais race indifferent and is the recommended for fidelia for GFRby the [facility] Kidney Foundati on for Adults.The GFR will not calculate if th e sex is unknown or if thepatient's ag e is <18 years. CREATININE (test 0.9 mg/dL 0.5-1.0 N code = CREAT) CALCIUM (test code = 7.5 mg/dL 8.4-10.2 L CA) CBC W/AUTO [id number] 05:31:00 Test Item Value Reference Range Interpretation Comments WHITE BLOOD CELL (test code = WBC) 10.1 K/mm3 6.5-12.3 N RED BLOOD CELL (test code = RBC) 2.57 M/mm3 3.51-4.69 L HEMOGLOBIN (test code = HGB) 7.4 g/dL 10.1-13.8 L HEMATOCRIT (test code = HCT) 23.3 % 32.5-41.8 L MEAN CELL VOLUME (test code = MCV) 90.7 fL 84.6-96.6 N MEAN CELL HGB (test code = MCH) 28.8 pg 27.3-33.9 N MEAN CELL HGB CONCETRATION (test 31.8 gm/dL 32.0-34.2 L code = MCHC) RED CELL DISTRIBUTION WIDTH (test 14.4 % 12.2-16.3 N code = RDW) PLATELET COUNT (test code = PLT) 189 K/mm3 134-363 N MEAN PLATELET VOLUME (test code = 10.5 fL 9.2-12.7 N MPV) NEUTROPHIL % (test code = NT%) 83.4 % 57.9-77.3 H LYMPHOCYTE % (test code = LY%) 8.7 % 14.5-29.7 L MONOCYTE % (test code = MO%) 5.8 % 3.6-10.2 N EOSINOPHIL % (test code = EO%) 1.1 % 0.0-3.0 N BASOPHIL % (test code = BA%) 0.4 % 0.1-0.9 N NEUTROPHIL # (test code = NT#) 8.4 K/mm3 LYMPHOCYTE # (test code = LY#) 0.9 K/mm3 MONOCYTE # (test code = MO#) 0.6 K/mm3 EOSINOPHIL # (test code = EO#) 0.11 K/mm3 BASOPHIL # (test code = BA#) 0.0 K/mm3 RBC MORPHOLOGY REQUIRED (test code NORMAL NORMAL = RBCM) PLATELET MORPHOLOGY REQUIRED (test NORMAL NORMAL code = PLTMR) BASIC METABOLIC [id number] 05:26:00 Test Item Value Reference Range Interpretation Comments SODIUM (test code = 137 mEq/L 135-145 N NA) POTASSIUM (test code 3.7 mEq/L 3.5-5.0 N = K) CHLORIDE (test code 105 mEq/L 100-115 N = CL) CARBON DIOXIDE (test 26 mEq/L 22-31 N code = CO2) ANION GAP (test code 9.60 10-20 L = GAP) GLUCOSE (test code = 88 mg/dL 65-110 N GLU) BLOOD UREA NITROGEN 16 mg/dL 7-18 N (test code = BUN) GLOMERULAR 66 ml/min >60 N The Glomerular FILTRATION RATE Filtration R ate is a (test code = GFR) calculated parameterbased on serum Creatinine, pat ient age and sex. GFR va luesless than 60 mL/min/ 1.73 square meters a re indicative ofCh ronic Kidney Disease. Values less than 15 mL/min/1.73squa re meters indicate Kidney failure. The calculation forGFR is based on the CKD-EPI (2020) calculat ion. This formulais race indifferent and is the recommended for fidelia for GFRby the Natio nal Kidney Foundati on for Adults.The GFR will not calculate if th e sex is unknown or if thepatient's ag e is <18 years. CREATININE (test 0.9 mg/dL 0.5-1.0 N code = CREAT) CALCIUM (test code = 7.5 mg/dL 8.4-10.2 L CA) CBC W/AUTO [id number] 05:16:00 Test Item Value Reference Range Interpretation Comments WHITE BLOOD CELL (test code = WBC) 10.5 K/mm3 6.5-12.3 N RED BLOOD CELL (test code = RBC) 3.08 M/mm3 3.51-4.69 L HEMOGLOBIN (test code = HGB) 9.2 g/dL 10.1-13.8 L HEMATOCRIT (test code = HCT) 28.7 % 32.5-41.8 L MEAN CELL VOLUME (test code = MCV) 93.2 fL 84.6-96.6 N MEAN CELL HGB (test code = MCH) 29.9 pg 27.3-33.9 N MEAN CELL HGB CONCETRATION (test 32.1 gm/dL 32.0-34.2 N code = MCHC) RED CELL DISTRIBUTION WIDTH (test 15.0 % 12.2-16.3 N code = RDW) PLATELET COUNT (test code = PLT) 265 K/mm3 134-363 N MEAN PLATELET VOLUME (test code = 9.7 fL 9.2-12.7 N MPV) NEUTROPHIL % (test code = NT%) 66.7 % 57.9-77.3 N LYMPHOCYTE % (test code = LY%) 23.4 % 14.5-29.7 N MONOCYTE % (test code = MO%) 8.2 % 3.6-10.2 N EOSINOPHIL % (test code = EO%) 1.0 % 0.0-3.0 N BASOPHIL % (test code = BA%) 0.3 % 0.1-0.9 N NEUTROPHIL # (test code = NT#) 7.0 K/mm3 LYMPHOCYTE # (test code = LY#) 2.5 K/mm3 MONOCYTE # (test code = MO#) 0.9 K/mm3 EOSINOPHIL # (test code = EO#) 0.10 K/mm3 BASOPHIL # (test code = BA#) 0.0 K/mm3 RBC MORPHOLOGY REQUIRED (test code NORMAL NORMAL = RBCM) PLATELET MORPHOLOGY REQUIRED (test NORMAL NORMAL code = PLTMR) UA RFLX MICR CULT IF [id number] 18:45:00 Test Item Value Reference Range Interpretation Comments UA COLOR (test code = COLU) YELLOW YELLOW UA APPEARANCE (test code = CLEAR CLEAR APPU) UA GLUCOSE DIPSTICK (test code NEGATIVE NEG = DGLUU) UA BILIRUBIN DIPSTICK (test NEGATIVE NEG code = BILU) UA KETONE DIPSTICK (test code 1+ NEG A = KETU) UA SPECIFIC GRAVITY (test code 1.023 1.001-1.035 N = SGU) UA BLOOD DIPSTICK (test code = 2+ NEG A CHRISTOPHER) UA PH DIPSTICK (test code = 5.0 5-9 BIB) UA PROTEIN DIPSTICK (test code NEGATIVE NEG = PROU) UA UROBILINIOGEN DIPSTICK NEGATIVE mg/dL NEG (test code = URO) UA NITRITE DIPSTICK (test code NEG NEG = LIV) UA LEUKOCYTE ESTERASE DIPSTICK TRACE NEG A (test code = LEUU) UA WBC (test code = WBCU) 3-5 #/hpf NONE SEEN A UA RBC (test code = RBCU) 0-2 #/hpf NONE SEEN UA EPITHELIAL CELLS (test code RARE #/HPF RARE-FEW = EPIU) UA MUCUS (test code = MUCU) RARE NONE SEEN Indication for culture: RiskForSepsis-no oth srcSpecimen Description: CATHETER BASIC METABOLIC [id number] 18:41:00 Test Item Value Reference Range Interpretation Comments SODIUM (test code = 139 mEq/L 135-145 N NA) POTASSIUM (test code 4.0 mEq/L 3.5-5.0 N = K) CHLORIDE (test code 105 mEq/L 100-115 N = CL) CARBON DIOXIDE (test 24 mEq/L 22-31 N code = CO2) ANION GAP (test code 13.70 10-20 N = GAP) GLUCOSE (test code = 116 mg/dL 65-110 H GLU) BLOOD UREA NITROGEN 21 mg/dL 7-18 H (test code = BUN) GLOMERULAR 47 ml/min >60 L The Glomerular FILTRATION RATE Filtration R ate is a (test code = GFR) calculated parameterbased on serum Creatinine, pat ient age and sex. GFR va luesless than 60 mL/min/ 1.73 square meters a re indicative ofCh ronic Kidney Disease. Values less than 15 mL/min/1.73squa re meters indicate Kidney failure. The calculation forGFR is based on the CKD-EPI (2020) calculat ion. This formulais race indifferent and is the recommended for fidelia for GFRby the Natio nal Kidney Foundati on for Adults.The GFR will not calculate if th e sex is unknown or if thepatient's ag e is <18 years. CREATININE (test 1.2 mg/dL 0.5-1.0 H code = CREAT) CALCIUM (test code = 7.8 mg/dL 8.4-10.2 L CA) CBC W/AUTO [id number] 17:15:00 Test Item Value Reference Range Interpretation Comments WHITE BLOOD CELL (test code = WBC) 13.4 K/mm3 6.5-12.3 H RED BLOOD CELL (test code = RBC) 2.97 M/mm3 3.51-4.69 L HEMOGLOBIN (test code = HGB) 8.6 g/dL 10.1-13.8 L HEMATOCRIT (test code = HCT) 27.0 % 32.5-41.8 L MEAN CELL VOLUME (test code = MCV) 90.9 fL 84.6-96.6 N MEAN CELL HGB (test code = MCH) 29.0 pg 27.3-33.9 N MEAN CELL HGB CONCETRATION (test 31.9 gm/dL 32.0-34.2 L code = MCHC) RED CELL DISTRIBUTION WIDTH (test 14.5 % 12.2-16.3 N code = RDW) PLATELET COUNT (test code = PLT) 249 K/mm3 134-363 N MEAN PLATELET VOLUME (test code = 10.0 fL 9.2-12.7 N MPV) NEUTROPHIL % (test code = NT%) 85.7 % 57.9-77.3 H LYMPHOCYTE % (test code = LY%) 7.0 % 14.5-29.7 L MONOCYTE % (test code = MO%) 6.7 % 3.6-10.2 N EOSINOPHIL % (test code = EO%) 0.0 % 0.0-3.0 N BASOPHIL % (test code = BA%) 0.2 % 0.1-0.9 N NEUTROPHIL # (test code = NT#) 11.5 K/mm3 LYMPHOCYTE # (test code = LY#) 0.9 K/mm3 MONOCYTE # (test code = MO#) 0.9 K/mm3 EOSINOPHIL # (test code = EO#) 0 K/mm3 BASOPHIL # (test code = BA#) 0.0 K/mm3 RBC MORPHOLOGY REQUIRED (test code NORMAL NORMAL = RBCM) PLATELET MORPHOLOGY REQUIRED (test NORMAL NORMAL code = PLTMR) - XR CHEST 1 [id number] 00:00:00 [facility] 1945 Sex: F Patient Name: JHONY HOLLIS Unit No: [id number] EXAMS: CPT CODE: [id number] XR CHEST 1 V [id number] PROCEDURE INFORMATION: Exam: XR Chest Exam date and time: 06/14/2022 11:10 AM Age: 76 years old Clinical indication: Shortness of breath; Prior surgery; Surgery date: Post-operative (0-2 days); Surgery type: Colon resection yesterday; Additional info: SOB TECHNIQUE: Imaging protocol: Radiologic exam of the chest. Views: 1 view. COMPARISON: No relevant prior studies available. FINDINGS: Lungs: Limited inspiration with central crowding of the pulmonary vasculature and minimal central peribronchial and left retrocardiac opacities. No dense lobar consolidation. Pleural spaces: Low volume left costophrenic pleural fluid with a sharp right costophrenic sulcus. No pneumothorax. Heart/Mediastinum: The cardiac silhouette is not enlarged. Bones/joints: No destructive bone lesions. IMPRESSION: 1. Limitedinspiration with central crowding of the pulmonary vasculature and minimal central peribronchial andleft retrocardiac opacities, probably representing atelectasis and or secretions. 2. No sabina edema or dense lobar consolidation. at 1151 Reported and signed by: Maxim Lawson MD CC: Yoel Gallego MD; Roberto Sanchez MDTechnologist: Sagrario Henderson, RT Trnscrbd D/ (1151) GCD.CPS Orig Print D/T: S: 06/14/2022 (1151) [facility] NAME[facility] PHYS: NATHANAELYI. Roberto Sanchez MD [address] : 1945 AGE: 76 SEX: F [place], [place] [address] LOC: Kaity.[phone] A PHONE #: [phone] EXAM DATE: 06/14/2022 STATUS: ADM IN FAX #: [phone] RAD NO: Page 1 Signed ReportCOMPREHENSIVE METABOLIC [id number] 13:27:00 Test Item Value Reference Range Interpretation Comments SODIUM (test code = 142 mEq/L 135-145 N NA) POTASSIUM (test code 4.2 mEq/L 3.5-5.0 N = K) CHLORIDE (test code 104 mEq/L 100-115 N = CL) CARBON DIOXIDE (test 31 mEq/L 22-31 N code = CO2) ANION GAP (test code 11.50 10-20 N = GAP) GLUCOSE (test code = 74 mg/dL 65-110 N GLU) BLOOD UREA NITROGEN 18 mg/dL 7-18 N (test code = BUN) GLOMERULAR 52 ml/min >60 L The Glomerular FILTRATION RATE Filtration R ate is a (test code = GFR) calculated parameterbased on serum Creatinine, pat ient age and sex. GFR va luesless than 60 mL/min/ 1.73 square meters a re indicative ofCh ronic Kidney Disease. Values less than 15 mL/min/1.73squa re meters indicate Kidney failure. The calculation for GFR is based on the CK D-EPI (2020) calculat ion. This formulais race indifferent and is the recommended for fidelia for GFRby the Nat nal Kidney Foundati on for Adults.The GFR will not calculate if th e sex is unknown or if thepatient's ag e is <18 years. CREATININE (test 1.1 mg/dL 0.5-1.0 H code = CREAT) TOTAL PROTEIN (test 6.9 gm/dL 6.3-8.2 N code = PROT) ALBUMIN (test code = 3.6 gm/dL 3.4-4.8 N ALB) CALCIUM (test code = 9.2 mg/dL 8.4-10.2 N CA) BILIRUBIN TOTAL 0.9 mg/dL 0.2-1.0 N (test code = BILT) SGOT/AST (test code 17 units/L 15-37 N = AST) SGPT/ALT (test code 19 units/L 12-78 N = ALT) ALKALINE PHOSPHATASE 84 units/L 46-116 N TOTAL (test code = ALKP) PROTHROMBIN [id number] 13:10:00 Test Item Value Reference Range Interpretation Comments PROTHROMBIN TIME PATIENT (test code 10.2 secs 10.1-12.3 N = PTP) THROMBOPLASTIN TIME [id number] 13:10:00 Test Item Value Reference Range Interpretation Comments THROMBOPLASTIN TIME PARTIAL (test 30.2 secs 22-38 N code = PTT) CBC W/AUTO [id number] 12:41:00 Test Item Value Reference Range Interpretation Comments WHITE BLOOD CELL (test code = WBC) 6.1 K/mm3 6.5-12.3 L RED BLOOD CELL (test code = RBC) 3.91 M/mm3 3.51-4.69 N HEMOGLOBIN (test code = HGB) 11.2 g/dL 10.1-13.8 N HEMATOCRIT (test code = HCT) 35.9 % 32.5-41.8 N MEAN CELL VOLUME (test code = MCV) 91.8 fL 84.6-96.6 N MEAN CELL HGB (test code = MCH) 28.6 pg 27.3-33.9 N MEAN CELL HGB CONCETRATION (test 31.2 gm/dL 32.0-34.2 L code = MCHC) RED CELL DISTRIBUTION WIDTH (test 14.8 % 12.2-16.3 N code = RDW) PLATELET COUNT (test code = PLT) 319 K/mm3 134-363 N MEAN PLATELET VOLUME (test code = 9.5 fL 9.2-12.7 N MPV) NEUTROPHIL % (test code = NT%) 62.6 % 57.9-77.3 N LYMPHOCYTE % (test code = LY%) 26.9 % 14.5-29.7 N MONOCYTE % (test code = MO%) 6.7 % 3.6-10.2 N EOSINOPHIL % (test code = EO%) 2.8 % 0.0-3.0 N BASOPHIL % (test code = BA%) 0.8 % 0.1-0.9 N NEUTROPHIL # (test code = NT#) 3.9 K/mm3 LYMPHOCYTE # (test code = LY#) 1.7 K/mm3 MONOCYTE # (test code = MO#) 0.4 K/mm3 EOSINOPHIL # (test code = EO#) 0.17 K/mm3 BASOPHIL # (test code = BA#) 0.1 K/mm3 RBC MORPHOLOGY REQUIRED (test code NORMAL NORMAL = RBCM) PLATELET MORPHOLOGY REQUIRED (test NORMAL NORMAL code = PLTMR) PROTHROMBIN [id number] 13:57:00 Test Item Value Reference Range Interpretation Comments PROTHROMBIN TIME PATIENT (test code 10.2 secs 10.1-12.3 N = PTP) THROMBOPLASTIN TIME [id number] 13:57:00 Test Item Value Reference Range Interpretation Comments THROMBOPLASTIN TIME PARTIAL (test 32.5 secs 22-38 N code = PTT) COMPREHENSIVE METABOLIC [id number] 13:20:00 Test Item Value Reference Range Interpretation Comments SODIUM (test code = 140 mEq/L 135-145 N NA) POTASSIUM (test code 4.0 mEq/L 3.5-5.0 N = K) CHLORIDE (test code 106 mEq/L 100-115 N = CL) CARBON DIOXIDE (test 27 mEq/L 22-31 N code = CO2) ANION GAP (test code 10.70 10-20 N = GAP) GLUCOSE (test code = 84 mg/dL 65-110 N GLU) BLOOD UREA NITROGEN 14 mg/dL 7-18 N (test code = BUN) GLOMERULAR 52 ml/min >60 L The Glomerular FILTRATION RATE Filtration R ate is a (test code = GFR) calculated parameterbased on serum Creatinine, pat ient age and sex. GFR va luesless than 60 mL/min/ 1.73 square meters a re indicative ofCh ronic Kidney Disease. Values less than 15 mL/min/1.73squa re meters indicate Kidney failure. The calculation for GFR is based on the CK D-EPI (2020) calculat ion. This formulais race indifferent and is the recommended for fidelia for GFRby the Natio nal Kidney Foundati on for Adults.The GFR will not calculate if th e sex is unknown or if thepatient's ag e is <18 years. CREATININE (test 1.1 mg/dL 0.5-1.0 H code = CREAT) TOTAL PROTEIN (test 7.0 gm/dL 6.3-8.2 N code = PROT) ALBUMIN (test code = 3.4 gm/dL 3.4-4.8 N ALB) CALCIUM (test code = 8.8 mg/dL 8.4-10.2 N CA) BILIRUBIN TOTAL 0.9 mg/dL 0.2-1.0 N (test code = BILT) SGOT/AST (test code 17 units/L 15-37 N = AST) SGPT/ALT (test code 22 units/L 12-78 N = ALT) ALKALINE PHOSPHATASE 80 units/L 46-116 N TOTAL (test code = ALKP) CBC W/AUTO [id number] 13:01:00 Test Item Value Reference Range Interpretation Comments WHITE BLOOD CELL (test code = WBC) 7.3 K/mm3 6.5-12.3 N RED BLOOD CELL (test code = RBC) 3.91 M/mm3 3.51-4.69 N HEMOGLOBIN (test code = HGB) 11.1 g/dL 10.1-13.8 N HEMATOCRIT (test code = HCT) 36.4 % 32.5-41.8 N MEAN CELL VOLUME (test code = MCV) 93.1 fL 84.6-96.6 N MEAN CELL HGB (test code = MCH) 28.4 pg 27.3-33.9 N MEAN CELL HGB CONCETRATION (test 30.5 gm/dL 32.0-34.2 L code = MCHC) RED CELL DISTRIBUTION WIDTH (test 15.3 % 12.2-16.3 N code = RDW) PLATELET COUNT (test code = PLT) 317 K/mm3 134-363 N MEAN PLATELET VOLUME (test code = 9.8 fL 9.2-12.7 N MPV) NEUTROPHIL % (test code = NT%) 61.9 % 57.9-77.3 N LYMPHOCYTE % (test code = LY%) 27.0 % 14.5-29.7 N MONOCYTE % (test code = MO%) 6.6 % 3.6-10.2 N EOSINOPHIL % (test code = EO%) 3.3 % 0.0-3.0 H BASOPHIL % (test code = BA%) 0.8 % 0.1-0.9 N NEUTROPHIL # (test code = NT#) 4.5 K/mm3 LYMPHOCYTE # (test code = LY#) 2.0 K/mm3 MONOCYTE # (test code = MO#) 0.5 K/mm3 EOSINOPHIL # (test code = EO#) 0.24 K/mm3 BASOPHIL # (test code = BA#) 0.1 K/mm3 RBC MORPHOLOGY REQUIRED (test code NORMAL NORMAL = RBCM) PLATELET MORPHOLOGY REQUIRED (test NORMAL NORMAL code = PLTMR) BASIC METABOLIC [id number] 05:51:00 Test Item Value Reference Range Interpretation Comments SODIUM (test code = 140 mEq/L 135-145 N NA) POTASSIUM (test code 4.1 mEq/L 3.5-5.0 N = K) CHLORIDE (test code 107 mEq/L 100-115 N = CL) CARBON DIOXIDE (test 26 mEq/L 22-31 N code = CO2) ANION GAP (test code 11.60 10-20 N = GAP) GLUCOSE (test code = 68 mg/dL 65-110 N GLU) BLOOD UREA NITROGEN 8 mg/dL 7-18 N (test code = BUN) GLOMERULAR 58 ml/min >60 L The Glomerular FILTRATION RATE Filtration R ate is a (test code = GFR) calculated parameterbased on serum Creatinine, pat ient age and sex. GFR va luesless than 60 mL/min/ 1.73 square meters a re indicative ofCh ronic Kidney Disease. Values less than 15 mL/min/1.73squa re meters indicate Kidney failure. The calculation forGFR is based on the CKD-EPI (2020) calculat ion. This formulais race indifferent and is the recommended for fidelia for GFRby the Nat nal Kidney Foundati on for Adults.The GFR will not calculate if th e sex is unknown or if thepatient's ag e is <18 years. CREATININE (test 1.0 mg/dL 0.5-1.0 N code = CREAT) CALCIUM (test code = 7.8 mg/dL 8.4-10.2 L CA) CBC W/AUTO [id number] 05:46:00 Test Item Value Reference Range Interpretation Comments WHITE BLOOD CELL (test code = WBC) 7.7 K/mm3 6.5-12.3 N RED BLOOD CELL (test code = RBC) 3.30 M/mm3 3.51-4.69 L HEMOGLOBIN (test code = HGB) 9.4 g/dL 10.1-13.8 L HEMATOCRIT (test code = HCT) 30.2 % 32.5-41.8 L MEAN CELL VOLUME (test code = MCV) 91.5 fL 84.6-96.6 N MEAN CELL HGB (test code = MCH) 28.5 pg 27.3-33.9 N MEAN CELL HGB CONCETRATION (test 31.1 gm/dL 32.0-34.2 L code = MCHC) RED CELL DISTRIBUTION WIDTH (test 14.3 % 12.2-16.3 N code = RDW) PLATELET COUNT (test code = PLT) 235 K/mm3 134-363 N MEAN PLATELET VOLUME (test code = 10.0 fL 9.2-12.7 N MPV) NEUTROPHIL % (test code = NT%) 74.2 % 57.9-77.3 N LYMPHOCYTE % (test code = LY%) 18.1 % 14.5-29.7 N MONOCYTE % (test code = MO%) 6.5 % 3.6-10.2 N EOSINOPHIL % (test code = EO%) 0.4 % 0.0-3.0 N BASOPHIL % (test code = BA%) 0.4 % 0.1-0.9 N NEUTROPHIL # (test code = NT#) 5.7 K/mm3 LYMPHOCYTE # (test code = LY#) 1.4 K/mm3 MONOCYTE # (test code = MO#) 0.5 K/mm3 EOSINOPHIL # (test code = EO#) 0.03 K/mm3 BASOPHIL # (test code = BA#) 0.0 K/mm3 RBC MORPHOLOGY REQUIRED (test code NORMAL NORMAL = RBCM) PLATELET MORPHOLOGY REQUIRED (test NORMAL NORMAL code = PLTMR) [id number] 10:30:00 Test Item Value Reference Range Interpretation Comments GLUBED (test code = GLUBED) 113 mg/dL 65-110 H [id number] 06:27:00 Test Item Value Reference Range Interpretation Comments GLUBED (test code = GLUBED) 70 mg/dL 65-110 N COMPREHENSIVE METABOLIC [id number] 14:13:00 Test Item Value Reference Range Interpretation Comments SODIUM (test code = 139 mEq/L 135-145 N NA) POTASSIUM (test code 3.6 mEq/L 3.5-5.0 N = K) CHLORIDE (test code 103 mEq/L 100-115 N = CL) CARBON DIOXIDE (test 30 mEq/L 22-31 N code = CO2) ANION GAP (test code 9.30 10-20 L = GAP) GLUCOSE (test code = 90 mg/dL 65-110 N GLU) BLOOD UREA NITROGEN 11 mg/dL 7-18 N (test code = BUN) GLOMERULAR 52 ml/min >60 L The Glomerular FILTRATION RATE Filtration R ate is a (test code = GFR) calculated parameterbased on serum Creatinine, pat ient age and sex. GFR va luesless than 60 mL/min/ 1.73 square meters a re indicative ofCh ronic Kidney Disease. Values less than 15 mL/min/1.73squa re meters indicate Kidney failure. The calculation for GFR is based on the CK D-EPI (2020) calculat ion. This formulais race indifferent and is the recommended for fidelia for GFRby the Natio nal Kidney Foundati on for Adults.The GFR will not calculate if th e sex is unknown or if thepatient's ag e is <18 years. CREATININE (test 1.1 mg/dL 0.5-1.0 H code = CREAT) TOTAL PROTEIN (test 6.6 gm/dL 6.3-8.2 N code = PROT) ALBUMIN (test code = 3.4 gm/dL 3.4-4.8 N ALB) CALCIUM (test code = 8.7 mg/dL 8.4-10.2 N CA) BILIRUBIN TOTAL 0.6 mg/dL 0.2-1.0 N (test code = BILT) SGOT/AST (test code 18 units/L 15-37 N = AST) SGPT/ALT (test code 19 units/L 12-78 N = ALT) ALKALINE PHOSPHATASE 77 units/L 46-116 N TOTAL (test code = ALKP) CBC W/AUTO [id number] 12:56:00 Test Item Value Reference Range Interpretation Comments WHITE BLOOD CELL (test code = WBC) 7.0 K/mm3 6.5-12.3 N RED BLOOD CELL (test code = RBC) 3.92 M/mm3 3.51-4.69 N HEMOGLOBIN (test code = HGB) 11.3 g/dL 10.1-13.8 N HEMATOCRIT (test code = HCT) 36.0 % 32.5-41.8 N MEAN CELL VOLUME (test code = MCV) 91.8 fL 84.6-96.6 N MEAN CELL HGB (test code = MCH) 28.8 pg 27.3-33.9 N MEAN CELL HGB CONCETRATION (test 31.4 gm/dL 32.0-34.2 L code = MCHC) RED CELL DISTRIBUTION WIDTH (test 13.6 % 12.2-16.3 N code = RDW) PLATELET COUNT (test code = PLT) 322 K/mm3 134-363 N MEAN PLATELET VOLUME (test code = 9.6 fL 9.2-12.7 N MPV) NEUTROPHIL % (test code = NT%) 66.5 % 57.9-77.3 N LYMPHOCYTE % (test code = LY%) 24.0 % 14.5-29.7 N MONOCYTE % (test code = MO%) 6.7 % 3.6-10.2 N EOSINOPHIL % (test code = EO%) 1.9 % 0.0-3.0 N BASOPHIL % (test code = BA%) 0.6 % 0.1-0.9 N NEUTROPHIL # (test code = NT#) 4.7 K/mm3 LYMPHOCYTE # (test code = LY#) 1.7 K/mm3 MONOCYTE # (test code = MO#) 0.5 K/mm3 EOSINOPHIL # (test code = EO#) 0.13 K/mm3 BASOPHIL # (test code = BA#) 0.0 K/mm3 PROTHROMBIN [id number] 12:53:00 Test Item Value Reference Range Interpretation Comments PROTHROMBIN TIME PATIENT (test code 10.7 secs 10.1-12.3 N = PTP) THROMBOPLASTIN TIME [id number] 12:53:00 Test Item Value Reference Range Interpretation Comments THROMBOPLASTIN TIME PARTIAL (test 33.9 secs 22-38 N code = PTT) Notes Date/Time Note Provider Source 2022-06-17 08:15:00-00:00 [facility] ([facility]) Discharge Summary REPORT#:[id number] REPORT STATUS: Signed DATE:06/17/22 TIME: 814 PATIENT: JHONY HOLLIS UNIT #: [id number] 1 ROOM/BED: [address] : 45 AGE: 76 SEX: F ATTEND: Yoel Gallego MD ADM AUTHOR: Shital Lnada MD * ALL edits or amendments must be made on the [employer]/computer document * General Information Discharge date: 06/17/22 Discharge diagnosis: Crohn's disease Hospital course: Patient underwent a resection of a previous ileo cectomy and creation of a new anastomosis between her ileum and colon. Her t was advanced as tolerated. Patient was discharged when she was ambulating, her pain was controlled with oral medications, and she was tolerating a diet. Med Rec Med Rec Discharge meds: Stop taking the following medications: traMADol (ULTRAM) 50 MG TAB 50 MILLIGRAM ORAL EVERY 6 HOURS NEEDED. as n eeded for MODERATE PAIN SCALE 4-6 Days = 5 Qty = 20 Continue taking these medications: ALPHA LIPOIC ACID (ALPHA LIPOIC ACID) 100 MG CAP 600 MILLIGRAM ORAL FOLIC ACID (FOLIC ACID) 5 MG/ML VIAL 1 MILLIGRAM INTRAVENOUS DAILY. [FISH OIL] Comments: 1000 MG PO DAILY ASCORBIC ACID (VITAMIN C) 500 MG TAB 500 MILLIGRAM ORAL DAILY. FAMOTIDINE (PEPCID) 20 MG TAB 10 MILLIGRAM ORAL DAILY. CHOLECALCIFEROL (VITAMIN D3) (VITAMIN D3) 50 MCG (2,000 UNIT) CAP 3,000 UNITS ORAL DAILY. [MAGNESIUM] Comments: 400 MG PO DAILY TRAVOPROST (TRAVATAN-Z 0.004% OPHTH) 0.004 % OPH TH.SOLN 1 DROPS EACH EYE BEDTIME. TEMAZEPAM (RESTORIL) 30 MG CAP 30 MILLIGRAM ORAL BEDTIME. [TURMERIC CURCUMIN] Comments: 1000 MG DAILY MELATONIN (MELATONIN) 5 MG TAB 10 MILLIGRAM ORAL BEDTIME. Start taking the following new medications: methocarbamoL (ROBAXIN) 500 MG TAB 750 MILLIGRAM ORAL THREE TIMES DAILY NEEDED. as needed for MUSCLE SPASMS/ PAIN Qty = 24 No Refills traMADol (ULTRAM) 50 MG TAB 50 MILLIGRAM ORAL EVERY 6 HOURS NEEDED. as n eeded for ACUTE PAIN Qty = 24 No Refills Discharge Instructions PCP )( Discharge to: Home/Self Care Discharge Instructions Additional Discharge Routines: None )( Diet: Regular Electronically Signed by Shital Landa MD on at 0819 RPT #:[id number] END OF REPORT 2022-06-16 19:37:00-00:00 [facility] ([facility]) Colorectal Surgery Prog Note REPORT#:[id number] REPORT STATUS: Signed DATE:06/16/22 TIME: 1936 PATIENT: JHONY HOLLIS UNIT #: [id number] 1 ROOM/BED: [address] : 45 AGE: 76 SEX: F ATTEND: Yoel Gallego MD ADM AUTHOR: Shital Landa MD * ALL edits or amendments must be made on the [employer]/computer document * General Date of surgery: 06/13/22 Status post: open ileocecectomy, lcl-urgiy-clefria anastomosi s Subjective Chief complaint: Patient denies nausea or emesis. She is passing flatus. Evie-incisional pain adequately controlled. Objective General VS/I O: Last Documented: Result Date Time Pulse Ox 96 06/16 1930 B/P 130/76 06/16 1930 B/P Mean 93.7 06/16 1930 O2 Delivery Room air 06/16 1930 Temp 98.1 06/16 1930 Pulse 98 06/16 1930 Resp 18 06/16 1930 O2 Flow Rate 10 06/13 1821 24 hour I O ending at 0700: 06/16 0700 06/15 1900 Intake Total 710.00 1100.00 Output Total 875 400 Balance -165.00 700.00 Intake, IV 650.00 1100.00 Intake, Oral 60 Output, Urine 875 400 PATIENT WEIGHT: Weight (lb): 125 Weight (oz): 7.09 Weight (kg): 56.900 Physical Exam General appearance: alert, awake, oriented Wound/incision: Location: Incisions are clean dry and intact without surro unding erythema, fluctuance, or drainage. This includes midline i ncision and two right-sided laparoscopic incisions. Abdomen: tenderness (appropriately ttp), soft, n o distention, no guarding Genitourinary - Female: no urinary catheter Neuro/VENDOR ANALYST: alert, oriented x 3, CNII-XII intact Current Medications Medications: Active Meds + DC'd Last 24 Hrs Tramadol HCl (ULTRAM 50 MG) 50 MG Q6H PRN PRN PO Potassium Chloride (POTASSIUM CHLORIDE 10MEQ/100 ML STERILE WATER) 100 ML Q1H IV (DC) Docusate Sodium (DOCUSATE SODIUM 100 MG CAP) 100 MG Q12HR PO Senna (SENOKOT TAB) 1 TAB DAILY PO (CKD) Methocarbamol (METHOCARBAMOL 500 MG TAB) 750 MG Q8HR PO Furosemide (FUROSEMIDE 10 MG/ML 2 ML VIAL) 10 MG ONCE ONE IV (DC) Famotidine (PEPCID 20 MG TAB) 10 MG DAILY PO Melatonin (Melatonin 3 mg) 9 MG BEDTIME PRN PRN PO Nortriptyline HCl (NORTRIPTYLINE HCL 25 MG CAP) 25 MG BEDTIME PO Enoxaparin Sodium (LOVENOX SOD 40MG INJ) 40 MG D AILY SUBQ (DC) Metronidazole/Sodium Chloride (metroNIDAZOLE 500 MG PREMIX IV) 100 ML Q8H IV Sodium Chloride (SODIUM CHLORIDE 0.9% PF) 10 ML ASDIR IV Hydromorphone HCl (DILAUDID 0.2MG/ML NS 50 ML PC A SYRINGE) SEE ADMIN CRIT ASDIR IV (DC) Acetaminophen (TYLENOL EXTRA STRENGTH) 1,000 MG Q8H PO Diphenhydramine HCl (diphenhydrAMINE HCL 50 MG/M L 1 ML VIAL) 12.5 MG Q2H PRN PRN IV Lactated Ringer's (LACTATED RINGERS) 1,000 ML .Q 13H20M IV Ondansetron HCl (ZOFRAN 2 MG/ML 4 MG SYR) 4 MG Q 6H PRN PRN IV Omeprazole/Sodium Bicarbonate (ZEGERID 20 MG CAP SHAHBAZ) 1 CAP PREOP PO Acetaminophen (TYLENOL EXTRA STRENGTH) 1,000 MG PREOP PO (CKD) Ertapenem (INVanz 1GM) 1 GM PREOP IV Sodium Chloride (SODIUM CHLORIDE 0.9% 100 mL MB P) 100 ML Gabapentin (NEURONTIN 400MG CAP) 400 MG PREOP PO (CKD) Lactated Ringer's (LACTATED RINGERS) 1,000 ML Q2 4H IV Results Findings/Data: Laboratory Tests 06/16/22 0900: [Embedded Image Not Available] 06/16/22 0455: [Embedded Image Not Available] Laboratory Tests 06/16 454 Chemistry Sodium (135 - 145 mEq/L) 140 Potassium (3.5 - 5.0 mEq/L) 3.3 L Chloride (100 - 115 mEq/L) 104 Carbon Dioxide (22 - 31 mEq/L) 22 Anion Gap (10 - 20) 17.50 BUN (7 - 18 mg/dL) 16 Creatinine (0.5 - 1.0 mg/dL) 0.9 Glomerular Filtr Rate (>60 ml/min) 66 Glucose (65 - 110 mg/dL) 73 Calcium (8.4 - 10.2 mg/dL) 7.5 L Laboratory Tests 06/16 06/16 0900 0455 Hematology WBC (6.5 - 12.3 K/mm3) 11.1 10.1 RBC (3.51 - 4.69 M/mm3) 2.85 L 2.57 L Hgb (10.1 - 13.8 g/dL) 8.2 L 7.4 L Hct (32.5 - 41.8 %) 25.7 L 23.3 L MCV (84.6 - 96.6 fL) 90.2 90.7 MCH (27.3 - 33.9 pg) 28.8 28.8 MCHC (32.0 - 34.2 gm/dL) 31.9 L 31.8 L RDW (12.2 - 16.3 %) 14.2 14.4 Plt Count (134 - 363 K/mm3) 203 189 MPV (9.2 - 12.7 fL) 10.7 10.5 Neut % (Auto) (57.9 - 77.3 %) 87.3 H 83.4 H Lymph % (Auto) (14.5 - 29.7 %) 6.7 L 8.7 L [place] % (Auto) (3.6 - 10.2 %) 4.3 5.8 Eos % (Auto) (0.0 - 3.0 %) 0.7 1.1 Baso % (Auto) (0.1 - 0.9 %) 0.4 0.4 Neut # (Auto) (K/mm3) 9.7 8.4 Lymph # (Auto) (K/mm3) 0.8 0.9 [place] # (Auto) (K/mm3) 0.5 0.6 Eos # (Auto) (K/mm3) 0.08 0.11 Baso # (Auto) (K/mm3) 0.1 0.0 Diagnosis, Assessment Plan Free Text A P: 76 yo female POD3 s/p ileocecectomy, new ileal-c olonic anastomosis -ambulate -pharmacologic DVT prophylaxis held as h gb this morning showed a decrease from yesterday; hgb on recheck was >8 so no blood tra nsfusions ordered -soft diet -Dilaudid WEB ADMINISTRATOR d/laxmi; multimo kat pain regimen ordered-Tylenol, Robaxin, Tramadol -bowel regimen Electronically Signed by Shital Landa MD on at 1943 RPT #:[id number] END OF REPORT 2022-06-16 10:30:00-00:00 [facility] ([facility]) Hospitalist Progress Note REPORT#:[id number] REPORT STATUS: Signed DATE:06/16/22 TIME: 1030 PATIENT: JHONY HOLLIS UNIT #: [id number] 1 ROOM/BED: [address] : 45 AGE: 76 SEX: F ATTEND: Yoel Gallego MD ADM AUTHOR: Roberto Sanchez MD * ALL edits or amendments must be made on the [employer]/computer document * Subjective Chief complaint: vomited earlier, she feels she gets naus eated whenever she pushes her dilaudid manager reporting pump, urinating fine after lee was removed Objective General VS/I O: Vital Signs: Date Time Temp Pulse Resp B/P B/P Pulse O2 O2 F low FiO2 Mean Ox Delivery Rate 06/16 0740 97.7 99 17 138/68 91.4 96 06/16 0414 97.9 97 18 132/73 92.3 95 Room air 05/ 2333 97.7 97 18 126/52 76.7 94 Room air 06/15 1928 97.7 93 18 138/73 94.5 98 Room air 06/15 1543 98.1 97 18 129/75 92.5 95 Room air 06/15 1119 98.2 96 18 107/65 79.2 95 Room air 24 hour I O ending at 0700: 06/16 0700 06/15 1900 Intake Total 710.00 1100.00 Output Total 875 400 Balance -165.00 700.00 Intake, IV 650.00 1100.00 Intake, Oral 60 Output, Urine 875 400 PATIENT WEIGHT: Weight (lb): 125 Weight (oz): 7.09 Weight (kg): 56.900 Medications: Active Meds + DC'd Last 24 Hrs Potassium Chloride (POTASSIUM CHLORIDE 10MEQ/100 ML STERILE WATER) 100 ML Q1HR IV (UNV) Docusate Sodium (DOCUSATE SODIUM 100 MG CAP) 100 MG Q12HR PO Senna (SENOKOT TAB) 1 TAB DAILY PO (CKD) Methocarbamol (METHOCARBAMOL 500 MG TAB) 750 MG Q8HR PO Furosemide (FUROSEMIDE 10 MG/ML 2 ML VIAL) 10 MG ONCE ONE IV (DC) Furosemide (FUROSEMIDE 10 MG/ML 2 ML VIAL) 10 MG ONCE ONE IV (DC) Famotidine (PEPCID 20 MG TAB) 10 MG DAILY PO Melatonin (Melatonin 3 mg) 9 MG BEDTIME PRN PRN PO Nortriptyline HCl (NORTRIPTYLINE HCL 25 MG CAP) 25 MG BEDTIME PO Enoxaparin Sodium (LOVENOX SOD 40MG INJ) 40 MG D AILY SUBQ (DC) Metronidazole/Sodium Chloride (metroNIDAZOLE 500 MG PREMIX IV) 100 ML Q8H IV Sodium Chloride (SODIUM CHLORIDE 0.9% PF) 10 ML ASDIR IV Hydromorphone HCl (DILAUDID 0.2MG/ML NS 50 ML PC A SYRINGE) SEE ADMIN CRIT ASDIR IV Acetaminophen (TYLENOL EXTRA STRENGTH) 1,000 MG Q8H PO Diphenhydramine HCl (diphenhydrAMINE HCL 50 MG/M L 1 ML VIAL) 12.5 MG Q2H PRN PRN IV Lactated Ringer's (LACTATED RINGERS) 1,000 ML .Q 13H20M IV Ondansetron HCl (ZOFRAN 2 MG/ML 4 MG SYR) 4 MG Q 6H PRN PRN IV Omeprazole/Sodium Bicarbonate (ZEGERID 20 MG CAP SHAHBAZ) 1 CAP PREOP PO Acetaminophen (TYLENOL EXTRA STRENGTH) 1,000 MG PREOP PO (CKD) Ertapenem (INVanz 1GM) 1 GM PREOP IV Sodium Chloride (SODIUM CHLORIDE 0.9% 100 mL MB P) 100 ML Gabapentin (NEURONTIN 400MG CAP) 400 MG PREOP PO (CKD) Lactated Ringer's (LACTATED RINGERS) 1,000 ML Q2 4H IV Physical Exam General appearance: alert, awake Cardiovascular: normal heart sounds, regular rat e rhythm Respiratory: crackles (less) Abdomen: soft, no distention Neuro/VENDOR ANALYST: alert, oriented X 3 Skin: dry Psychiatry: normal affect Results Findings/Data: Laboratory Tests 06/16 0455 Chemistry Sodium (135 - 145 mEq/L) 140 Potassium (3.5 - 5.0 mEq/L) 3.3 L Chloride (100 - 115 mEq/L) 104 Carbon Dioxide (22 - 31 mEq/L) 22 Anion Gap (10 - 20) 17.50 BUN (7 - 18 mg/dL) 16 Creatinine (0.5 - 1.0 mg/dL) 0.9 Glomerular Filtr Rate (>60 ml/min) 66 Glucose (65 - 110 mg/dL) 73 Calcium (8.4 - 10.2 mg/dL) 7.5 L Laboratory Tests 06/16 06/16 0900 0455 Hematology WBC (6.5 - 12.3 K/mm3) 11.1 10.1 RBC (3.51 - 4.69 M/mm3) 2.85 L 2.57 L Hgb (10.1 - 13.8 g/dL) 8.2 L 7.4 L Hct (32.5 - 41.8 %) 25.7 L 23.3 L MCV (84.6 - 96.6 fL) 90.2 90.7 MCH (27.3 - 33.9 pg) 28.8 28.8 MCHC (32.0 - 34.2 gm/dL) 31.9 L 31.8 L RDW (12.2 - 16.3 %) 14.2 14.4 Plt Count (134 - 363 K/mm3) 203 189 MPV (9.2 - 12.7 fL) 10.7 10.5 Neut % (Auto) (57.9 - 77.3 %) 87.3 H 83.4 H Lymph % (Auto) (14.5 - 29.7 %) 6.7 L 8.7 L [place] % (Auto) (3.6 - 10.2 %) 4.3 5.8 Eos % (Auto) (0.0 - 3.0 %) 0.7 1.1 Baso % (Auto) (0.1 - 0.9 %) 0.4 0.4 Neut # (Auto) (K/mm3) 9.7 8.4 Lymph # (Auto) (K/mm3) 0.8 0.9 [place] # (Auto) (K/mm3) 0.5 0.6 Eos # (Auto) (K/mm3) 0.08 0.11 Baso # (Auto) (K/mm3) 0.1 0.0 Results: labs reviewed, vital signs reviewed, cu rrent med profile rev'd Diagnosis, Assessment Plan Free Text DxA P Notes Free text DxA P notes: 1. mild pulm edema-better after iv lasix, replet e mild hypokalemia 2. mild JOSTIN-resolved 3. POD#3 bowel resection for Crohn's-soft diet p er CRS, dilaudid manager reporting causing nausea?, will discuss with CRS in regards to swi tching dilaudid manager reporting to oral narcotic prn 4. gi/dvt ppx-pepcid/lovenox will follow Electronically Signed by Roberto Sanchez MD on 06/05 at 1039 RPT #:[id number] END OF REPORT 2022-06-15 22:33:00-00:00 [facility] ([facility]) Colorectal Surgery Prog Note REPORT#:[id number] REPORT STATUS: Signed DATE:06/15/22 TIME: 2232 PATIENT: JHONY HOLLIS UNIT #: [id number] 1 ROOM/BED: 2612-A : 45 AGE: 76 SEX: F ATTEND: Yoel Gallego MD ADM AUTHOR: Shital Landa MD * ALL edits or amendments must be made on the [employer]/computer document * General Date of surgery: 06/13/22 Status post: open ileocecectomy, gnt-lonlj-jahgmqw anastomosi s Subjective Chief complaint: Patient has not yet passed f latus or had a bowel movement. Complaining of evie- incisional pain. No nausea or emesis. Objective General VS/I O: Last Documented: Result Date Time Pulse Ox 98 06/16 1927 B/P 138/73 06/16 1927 B/P Mean 94.5 06/16 1927 O2 Delivery Room air 06/16 1927 Temp 97.7 06/16 1927 Pulse 93 06/16 1927 Resp 18 06/16 1927 O2 Flow Rate 10 06/13 1822 24 hour I O ending at 0700: 06/15 0700 06/14 1900 Intake Total 960.00 1375.00 Output Total 550 178 Balance 410.00 1197.00 Intake, IV 900.00 1325.00 Intake, Oral 60 50 Output, Urine 550 178 PATIENT WEIGHT: Weight (lb): 125 Weight (oz): 7.09 Weight (kg): 56.900 Physical Exam General appearance: alert, awake, oriented Wound/incision: Location: Incisions are clean dry and intact without surro unding erythema, fluctuance, or drainage. This includes midline i ncision and two right-sided laparoscopic incisions. Abdomen: tenderness (appropriately ttp), soft, n o distention, no guarding Genitourinary - Female: urinary catheter Neuro/VENDOR ANALYST: alert, oriented x 3, CNII-XII intact Current Medications Medications: Active Meds + DC'd Last 24 Hrs Furosemide (FUROSEMIDE 10 MG/ML 2 ML VIAL) 10 MG ONCE ONE IV (DC) Furosemide (FUROSEMIDE 10 MG/ML 2 ML VIAL) 10 MG ONCE ONE IV (DC) Famotidine (PEPCID 20 MG TAB) 10 MG DAILY PO Melatonin (Melatonin 3 mg) 9 MG BEDTIME PRN PRN PO Nortriptyline HCl (NORTRIPTYLINE HCL 25 MG CAP) 25 MG BEDTIME PO Enoxaparin Sodium (LOVENOX SOD 40MG INJ) 40 MG D AILY SUBQ Metronidazole/Sodium Chloride (metroNIDAZOLE 500 MG PREMIX IV) 100 ML Q8H IV Sodium Chloride (SODIUM CHLORIDE 0.9% PF) 10 ML ASDIR IV Hydromorphone HCl (DILAUDID 0.2MG/ML NS 50 ML PC A SYRINGE) SEE ADMIN CRIT ASDIR IV Acetaminophen (TYLENOL EXTRA STRENGTH) 1,000 MG Q8H PO Diphenhydramine HCl (diphenhydrAMINE HCL 50 MG/M L 1 ML VIAL) 12.5 MG Q2H PRN PRN IV Lactated Ringer's (LACTATED RINGERS) 1,000 ML .Q 13H20M IV Ondansetron HCl (ZOFRAN 2 MG/ML 4 MG SYR) 4 MG Q 6H PRN PRN IV Omeprazole/Sodium Bicarbonate (ZEGERID 20 MG CAP SHAHBAZ) 1 CAP PREOP PO Acetaminophen (TYLENOL EXTRA STRENGTH) 1,000 MG PREOP PO (CKD) Ertapenem (INVanz 1GM) 1 GM PREOP IV Sodium Chloride (SODIUM CHLORIDE 0.9% 100 mL MB P) 100 ML Gabapentin (NEURONTIN 400MG CAP) 400 MG PREOP PO (CKD) Lactated Ringer's (LACTATED RINGERS) 1,000 ML Q2 4H IV Results Findings/Data: Laboratory Tests 06/15/22 0500: [Embedded Image Not Available] Laboratory Tests 06/15 0500 Chemistry Sodium (135 - 145 mEq/L) 137 Potassium (3.5 - 5.0 mEq/L) 3.7 Chloride (100 - 115 mEq/L) 105 Carbon Dioxide (22 - 31 mEq/L) 26 Anion Gap (10 - 20) 9.60 L BUN (7 - 18 mg/dL) 16 Creatinine (0.5 - 1.0 mg/dL) 0.9 Glomerular Filtr Rate (>60 ml/min) 66 Glucose (65 - 110 mg/dL) 88 Calcium (8.4 - 10.2 mg/dL) 7.5 L Laboratory Tests 06/15 0500 Hematology WBC (6.5 - 12.3 K/mm3) 10.5 RBC (3.51 - 4.69 M/mm3) 3.08 L Hgb (10.1 - 13.8 g/dL) 9.2 L Hct (32.5 - 41.8 %) 28.7 L MCV (84.6 - 96.6 fL) 93.2 MCH (27.3 - 33.9 pg) 29.9 MCHC (32.0 - 34.2 gm/dL) 32.1 RDW (12.2 - 16.3 %) 15.0 Plt Count (134 - 363 K/mm3) 265 MPV (9.2 - 12.7 fL) 9.7 Neut % (Auto) (57.9 - 77.3 %) 66.7 Lymph % (Auto) (14.5 - 29.7 %) 23.4 [place] % (Auto) (3.6 - 10.2 %) 8.2 Eos % (Auto) (0.0 - 3.0 %) 1.0 Baso % (Auto) (0.1 - 0.9 %) 0.3 Neut # (Auto) (K/mm3) 7.0 Lymph # (Auto) (K/mm3) 2.5 [place] # (Auto) (K/mm3) 0.9 Eos # (Auto) (K/mm3) 0.10 Baso # (Auto) (K/mm3) 0.0 Diagnosis, Assessment Plan Free Text A P: 76 yo female POD2 s/p ileocecectomy, new ileal-c olonic anastomosis -ambulate -d/c lee catheter -pharmacologic DVT prophylaxis-Lovenox -NPO except meds/sips until patient passes flatu s -continue Dilaudid WEB ADMINISTRATOR until patient tolerating diet, will add Robaxin Electronically Signed by Shital Landa MD on at 2235 RPT #:[id number] END OF REPORT 2022-06-15 10:56:00-00:00 [facility] ([facility]) Hospitalist Progress Note REPORT#:[id number] REPORT STATUS: Signed DATE:06/15/22 TIME: 1056 PATIENT: JHONY HOLLIS UNIT #: [id number] ROOM/BED: 2612-A : 45 AGE: 76 SEX: F ATTEND: Yoel Gallego MD ADM AUTHOR: Roberto Sanchez MD * ALL edits or amendments must be made on the [employer]/computer document * Subjective Chief complaint: still a little sob but on room air Objective General VS/I O: Vital Signs: Date Time Temp Pulse Resp B/P B/P Pulse O2 O2 F low FiO2 Mean Ox Delivery Rate 06/15 1543 98.1 97 18 129/75 92.5 95 Room air 06/15 1119 98.2 96 18 107/65 79.2 95 Room air 06/15 0758 98.8 107 18 115/61 79.3 94 Room air 06/15 0414 98.4 108 18 124/68 86.4 92 06/14 2330 98.8 105 18 121/54 76.3 92 Room air 06/14 1917 98.1 99 18 119/61 80.0 94 Room air 24 hour I O ending at 0700: 06/15 0700 06/14 1900 Intake Total 960.00 1375.00 Output Total 550 178 Balance 410.00 1197.00 Intake, IV 900.00 1325.00 Intake, Oral 60 50 Output, Urine 550 178 PATIENT WEIGHT: Weight (lb): 125 Weight (oz): 7.09 Weight (kg): 56.900 Medications: Active Meds + DC'd Last 24 Hrs Furosemide (FUROSEMIDE 10 MG/ML 2 ML VIAL) 10 MG ONCE ONE IV (DC) Famotidine (PEPCID 20 MG TAB) 10 MG DAILY PO Melatonin (Melatonin 3 mg) 9 MG BEDTIME PRN PRN PO Nortriptyline HCl (NORTRIPTYLINE HCL 25 MG CAP) 25 MG BEDTIME PO Enoxaparin Sodium (LOVENOX SOD 40MG INJ) 40 MG D AILY SUBQ Metronidazole/Sodium Chloride (metroNIDAZOLE 500 MG PREMIX IV) 100 ML Q8H IV Sodium Chloride (SODIUM CHLORIDE 0.9% PF) 10 ML ASDIR IV Hydromorphone HCl (DILAUDID 0.2MG/ML NS 50 ML PC A SYRINGE) SEE ADMIN CRIT ASDIR IV Acetaminophen (TYLENOL EXTRA STRENGTH) 1,000 MG Q8H PO Diphenhydramine HCl (diphenhydrAMINE HCL 50 MG/M L 1 ML VIAL) 12.5 MG Q2H PRN PRN IV Lactated Ringer's (LACTATED RINGERS) 1,000 ML .Q 13H20M IV Ondansetron HCl (ZOFRAN 2 MG/ML 4 MG SYR) 4 MG Q 6H PRN PRN IV Omeprazole/Sodium Bicarbonate (ZEGERID 20 MG CAP SHAHBAZ) 1 CAP PREOP PO Acetaminophen (TYLENOL EXTRA STRENGTH) 1,000 MG PREOP PO (CKD) Ertapenem (INVanz 1GM) 1 GM PREOP IV Sodium Chloride (SODIUM CHLORIDE 0.9% 100 mL MB P) 100 ML Gabapentin (NEURONTIN 400MG CAP) 400 MG PREOP PO (CKD) Lactated Ringer's (LACTATED RINGERS) 1,000 ML Q2 4H IV Physical Exam General appearance: alert, awake Cardiovascular: normal heart sounds, regular rat e rhythm Respiratory: crackles Abdomen: soft, no distention Neuro/VENDOR ANALYST: alert, oriented X 3 Skin: dry Psychiatry: normal affect Results Findings/Data: Laboratory Tests 06/15 0500 Chemistry Sodium (135 - 145 mEq/L) 137 Potassium (3.5 - 5.0 mEq/L) 3.7 Chloride (100 - 115 mEq/L) 105 Carbon Dioxide (22 - 31 mEq/L) 26 Anion Gap (10 - 20) 9.60 L BUN (7 - 18 mg/dL) 16 Creatinine (0.5 - 1.0 mg/dL) 0.9 Glomerular Filtr Rate (>60 ml/min) 66 Glucose (65 - 110 mg/dL) 88 Calcium (8.4 - 10.2 mg/dL) 7.5 L Laboratory Tests 06/15 0500 Hematology WBC (6.5 - 12.3 K/mm3) 10.5 RBC (3.51 - 4.69 M/mm3) 3.08 L Hgb (10.1 - 13.8 g/dL) 9.2 L Hct (32.5 - 41.8 %) 28.7 L MCV (84.6 - 96.6 fL) 93.2 MCH (27.3 - 33.9 pg) 29.9 MCHC (32.0 - 34.2 gm/dL) 32.1 RDW (12.2 - 16.3 %) 15.0 Plt Count (134 - 363 K/mm3) 265 MPV (9.2 - 12.7 fL) 9.7 Neut % (Auto) (57.9 - 77.3 %) 66.7 Lymph % (Auto) (14.5 - 29.7 %) 23.4 [place] % (Auto) (3.6 - 10.2 %) 8.2 Eos % (Auto) (0.0 - 3.0 %) 1.0 Baso % (Auto) (0.1 - 0.9 %) 0.3 Neut # (Auto) (K/mm3) 7.0 Lymph # (Auto) (K/mm3) 2.5 [place] # (Auto) (K/mm3) 0.9 Eos # (Auto) (K/mm3) 0.10 Baso # (Auto) (K/mm3) 0.0 Results: labs reviewed, vital signs reviewed, cu rrent med profile rev'd Diagnosis, Assessment Plan Free Text DxA P Notes Free text DxA P notes: 1. low urine output-likely d ue to acute blood loss anemia, urine output is good now, lungs crackly, will give iv lasix x 1 2. mild JOSTIN-resolved 3. POD#2 bowel resection for Crohn's-per CRS 4. gi/dvt ppx-pepcid/lovenox will follow Electronically Signed by Roberto Sanchez MD on 05/05 at 1922 RPT #:[id number] END OF REPORT 2022-06-14 17:12:00-00:00 [facility] ([facility]) Hospitalist Progress Note REPORT#:[id number] REPORT STATUS: Signed DATE:06/14/22 TIME: 2 PATIENT: JHONY HOLLIS UNIT #: [id number] ROOM/BED: [address] : 45 AGE: 76 SEX: F ATTEND: Yoel Gallego MD ADM AUTHOR: Roberto Sanchez MD * ALL edits or amendments must be made on the el ectronic/computer document * Subjective Chief complaint: low urine output, no other complaints Objective General VS/I O: Vital Signs: Date Time Temp Pulse Resp B/P B/P Pulse O2 O2 F low FiO2 Mean Ox Delivery Rate 06/14 1559 98.4 101 18 123/69 86.7 96 Room air 06/14 1125 97 16 115/66 82.5 95 Room air 06/14 0838 98.6 99 18 132/73 92.8 97 Room air 06/14 0425 97.9 94 16 131/74 93.0 96 Room air 06/13 2333 98.1 96 16 127/75 92.6 98 Room air 06/13 1945 97.9 93 16 145/76 98.7 96 Room air 06/13 1822 Simple 10 mask 24 hour I O ending at 0700: / 0700 05/ 1900 Intake Total 1325.00 1200.00 Output Total 220 200 Balance 1105.00 1000.00 Intake, IV 1325.00 1200.00 Output, 50 Estimated Blood Loss Output, Urine 220 150 PATIENT WEIGHT: Weight (lb): 125 Weight (oz): 7.09 Weight (kg): 56.900 Medications: Active Meds + DC'd Last 24 Hrs Famotidine (PEPCID 20 MG TAB) 10 MG DAILY PO Nortriptyline HCl (NORTRIPTYLINE HCL 25 MG CAP) 25 MG BEDTIME PO Enoxaparin Sodium (LOVENOX SOD 40MG INJ) 40 MG D AILY SUBQ Lactated Ringer's (LACTATED RINGERS) 500 ML RADHA US ONCE ONE IV (DC) Metronidazole/Sodium Chloride (metroNIDAZOLE 500 MG PREMIX IV) 100 ML Q8H IV Lactated Ringer's (LACTATED RINGERS) 1,000 ML DARIAN GLORIA ONCE ONE IV (DC) Famotidine (PEPCID 10 MG/ML 2ML VIAL) 20 MG Q12H R IV (DC) Metoprolol Tartrate (METOPROLOL TARTRATE 5MG/5ML AMPULE) 5 MG Q3H PRN PRN IV (DCr) Sodium Chloride (SODIUM CHLORIDE 0.9% PF) 10 ML ASDIR IV Lorazepam (ATIVAN 2 MG/ML 1 ML VIAL) 1 MG BEDTIM E PRN PRN IV (DC) Hydromorphone HCl (DILAUDID 0.2MG/ML NS 50 ML PC A SYRINGE) SEE ADMIN CRIT ASDIR IV Acetaminophen (TYLENOL EXTRA STRENGTH) 1,000 MG Q8H PO Diphenhydramine HCl (diphenhydrAMINE HCL 50 MG/M L 1 ML VIAL) 12.5 MG Q2H PRN PRN IV Lactated Ringer's (LACTATED RINGERS) 1,000 ML .Q 13H20M IV Ondansetron HCl (ZOFRAN 2 MG/ML 4 MG SYR) 4 MG Q 6H PRN PRN IV Omeprazole/Sodium Bicarbonate (ZEGERID 20 MG CAP SHAHBAZ) 1 CAP PREOP PO Acetaminophen (TYLENOL EXTRA STRENGTH) 1,000 MG PREOP PO (CKD) Ertapenem (INVanz 1GM) 1 GM PREOP IV Sodium Chloride (SODIUM CHLORIDE 0.9% 100 mL M BP) 100 ML Gabapentin (NEURONTIN 400MG CAP) 400 MG PREOP PO (CKD) Lactated Ringer's (LACTATED RINGERS) 1,000 ML Q2 4H IV Physical Exam General appearance: alert, awake Cardiovascular: normal heart sounds, regular rat e rhythm Respiratory: crackles Abdomen: soft, no distention Neuro/VENDOR ANALYST: alert, oriented X 3 Skin: dry Psychiatry: normal affect Results Radiology data: Recent Impressions: RADIOLOGY - XR CHEST 1 V 06/14 1105 Report Impression - Status: SIGNED Entered: 06/14/2022 1151 IMPRESSION: 1. Limited inspiration with central crowding of the pulmonary vasculature and minimal central peribronchial an d left retrocardiac opacities, probably representing atelectasis and or secretions. 2. No sabina edema or dense lobar consolidation. Impression By: [email or web address] - Maxim villafuerte MD Results: no new labs, vital signs review ed, x-ray personally reviewed, current med profile rev'd Diagnosis, Assessment Plan Free Text DxA P Notes Free text DxA P notes: 1. low urine output-lee in place, bladder scan didn't show any retention, cxr noted, on RA, will check UA, still waiting on cr today, hard stick, getting a picc, cont ivf 2. CKD3-cr pending 3. POD#1 bowel resection for Crohn's-per CRS 4. gi/dvt ppx-pepcid/lovenox will follow Electronically Signed by Roberto Sanchez MD on 04/07 at 1718 RPT #:[id number] END OF REPORT 2022-06-14 08:59:00-00:00 [facility] ([facility]) Colorectal Surgery Prog Note REPORT#:[id number] REPORT STATUS: Signed DATE:06/14/22 TIME: 858 PATIENT: JHONY HOLLIS UNIT #: [id number] ROOM/BED: [address] : 45 AGE: 76 SEX: F ATTEND: Yoel Gallego MD ADM AUTHOR: Shital Landa MD * ALL edits or amendments must be made on the [employer] document * General Date of surgery: 06/13/22 Status post: open ileocecectomy, fru-ollsj-cwoyjoe anastomosi s Subjective Chief complaint: Evie-incisional pain adequat bran controlled. Patient denies any nausea or emesis but is complaining of burping. She has not yet passed flatus or had a bowel movement. Objective General VS/I O: Last Documented: Result Date Time Pulse Ox 97 06/14 0838 B/P 132/73 06/14 0838 B/P Mean 92.8 06/14 0838 O2 Delivery Room air 06/14 837 Temp 98.6 06/14 0838 Pulse 99 06/14 0838 Resp 18 06/14 0838 O2 Flow Rate 10 06/13 1822 24 hour I O ending at 0700: 06/14 0700 05 1900 Intake Total 1325.00 1200.00 Output Total 220 200 Balance 1105.00 1000.00 Intake, IV 1325.00 1200.00 Output, 50 Estimated Blood Loss Output, Urine 220 150 PATIENT WEIGHT: Weight (lb): 125 Weight (oz): 7.09 Weight (kg): 56.900 Physical Exam General appearance: alert, awake, oriented Wound/incision: Location: Incisions are clean dry and intact without surrounding erythema, fluctuance, or drainage. This includes midline incision and two right-sided laparoscopic incisions. Abdomen: tenderness (appropriately ttp), soft, n o distention, no guarding Genitourinary - Female: urinary catheter Neuro/VENDOR ANALYST: alert, oriented x 3, CNII-XII intact Current Medications Medications: Active Meds + DC'd Last 24 Hrs Enoxaparin Sodium (LOVENOX SOD 40MG INJ) 40 MG D AILY SUBQ Lactated Ringer's (LACTATED RINGERS) 500 ML BOLU S ONCE ONE IV Metronidazole/Sodium Chloride (metroNIDAZOLE 500 MG PREMIX IV) 100 ML Q8H IV Lactated Ringer's (LACTATED RINGERS) 1,000 ML DARIAN GLORIA ONCE ONE IV (DC) Famotidine (PEPCID 10 MG/ML 2ML VIAL) 20 MG Q12H R IV Metoprolol Tartrate (METOPROLOL TARTRATE 5MG/5ML AMPULE) 5 MG Q3H PRN PRN IV Sodium Chloride (SODIUM CHLORIDE 0.9% PF) 10 ML ASDIR IV Lorazepam (ATIVAN 2 MG/ML 1 ML VIAL) 1 MG BEDTIM E PRN PRN IV Hydromorphone HCl (DILAUDID 0.2MG/ML NS 50 ML PC A SYRINGE) SEE ADMIN CRIT ASDIR IV Acetaminophen (TYLENOL EXTRA STRENGTH) 1,000 MG Q8H PO Diphenhydramine HCl (diphenhydrAMINE HCL 50 MG/M L 1 ML VIAL) 12.5 MG Q2H PRN PRN IV Hydromorphone HCl (DILAUDID 0.2MG/ML NS 50 ML PC A SYRINGE) SEE ADMIN CRIT ASDIR IV (DC) Lactated Ringer's (LACTATED RINGERS) 1,000 ML . [id number] IV Ondansetron HCl (ZOFRAN 2 MG/ML 4 MG SYR) 4 MG Q 6H PRN PRN IV Rocuronium [place] (ZEMURON 10 MG/ML 5 ML VIAL) 0 .STK-MED ONE .ROUTE ( DC) Fentanyl Citrate (SUBLIMAZE 2 ML) 50 MCG PACU DIR PRN PRN IV (DC) Hydromorphone HCl (DILAUDID) 0.25 MG PACU Q10MIN PRN PRN IV (DC) Ondansetron HCl (ZOFRAN 2 MG/ML 4 MG SYR) 4 MG P ACU ONCE PRN IV (DC) Omeprazole/Sodium Bicarbonate (ZEGERID 20 MG CAP SHAHBAZ) 1 CAP PREOP PO Acetaminophen (TYLENOL EXTRA STRENGTH) 1,000 MG PREOP PO (CKD) Ertapenem (INVanz 1GM) 1 GM PREOP IV Sodium Chloride (SODIUM CHLORIDE 0.9% 100 mL MB P) 100 ML Gabapentin (NEURONTIN 400MG CAP) 400 MG PREOP PO (CKD) Lactated Ringer's (LACTATED RINGERS) 1,000 ML Q2 4H IV Diagnosis, Assessment Plan Free Text A P: 76 yo female POD1 s/p ileocecectomy, new-ileal-c olonic anastomosis -ambulate -d/c lee catheter -pharmacologic DVT prophylaxis-Lovenox -NPO except meds/sips until patient passes flatu s -continue Dilaudid WEB ADMINISTRATOR until patient tolerating diet Electronically Signed by Shital Landa MD on at 0911 [facility] #:[id number] END OF REPORT 2022-06-13 17:35:00-00:00 [id number] [facility] [address], [place] [address] PATIENT NAME: JHONY HOLLIS ADMIT DATE: 06/13/22 ACCOUNT NO: [id number] ROOM NO: [facility] AGE: 76 SEX: F ADMITTING PHYSICIAN: Yoel Gallego MD ATTENDING PHYSICIAN: Yoel Gallego MD OPERATION DATE: 06/13/2022 POSTOPERATIVE DIAGNOSES: 1. Crohn's disease of small and large intestine with complications. 2. Crohn's disease with stricture of small bowel . 3. Crohn's disease with stricture of ileocolic a nastomosis. 4. Abdominal and pelvic adhesions. POSTOPERATIVE DIAGNOSES: 1. Crohn's disease of small and large intestine with complications. 2. Crohn's disease with stricture of small bowel . 3. Crohn's disease with stricture of ileocolic a nastomosis. 4. Abdominal and pelvic adhesions. PROCEDURE PERFORMED: 1. Diagnostic laparoscopy with planned conversio n to exploratory laparotomy. 2. Open small bowel and ileo colic resection with primary ileocolic anastomosis. 3. Open extensive lysis of intraabdominal adhesi ons. 4. Open extensive lysis of pelvic adhesions. 5. Open right ureterolysis. 6. Open oversew of small bowel serosal t ears x2, inherent to the procedure and lysis of adhesions. 7. Rigid Proctoscopy SURGEON: Yoel Gallego MD REHEATER HELPER: Dr. Shital Aquino ANESTHESIA: General. DEVICES: None. IMPLANTS: Seprafilm was placed over the omentum in the abdomen. COMPLICATIONS: None apparent. INTRAVENOUS FLUIDS: 1 liter. URINE OUTPUT: 100 mL. ESTIMATED BLOOD LOSS: 50 mL. SPECIMENS: Include small bowel and ileocolic carole stomosis. PATIENT NAME: JHONY HOLLIS INDICATIONS: The patient is a 76-year-old female with history of Crohn's disease and status post multiple prior explorato ry laparotomies. Few months ago, she underwent diagnostic laparoscopy and wa s noted to have extensive adhesions throughout the abdomen. The plan was f or her to bring her back with planned exploratory laparoto my after a diagnostic laparoscopy to confirm an area of the abdominal wall, which was safe for entry. PROCEDURE IN DETAIL: The patient was seen and ev aluated in preoperative holding. Proper consents were obtained. All ques tions were answered prior taken back to the operating theater. The patient was taken back to the operating theater, placed in supine position. Th e patient underwent general anesthesia via anesthesia staff. Proper timeout occurred with everyone in agreeme nt of procedure. The patient was placed in mo dified lithotomy position with her arms outstretched and legs and arms padded and tucked appropriatel y. Her legs were placed in Girma stirrups and padded appropriately. Lee catheter was placed by OR team. She underwent rigid proctoscopy, there was noted to be liquid stool in the rectum, which we were able to suction. There was noted to be no other significant mass or lesion, we advanced up to 15 cm from the anal verge. She was then prepped and draped in usual sterile fashion. FINDINGS: Diagnostic laparoscopy was performed i n the right upper quadrant. This was relatively free of adhesions and in the upper abdomen, there was an area of relatively free of adhesions. We entered through the abdomen at this point and we went through her prior midl ine incision. We removed an old suture from the fascia as we did so and entered into th e abdomen sharply. Upon entry into the abdomen, there was noted to be adhesion s throughout the abdomen including small bowel to small bowel, small kady l to the anterior abdominal wall, omentum to anterior ab dominal wall, colon to the anterior abdominal wall, small bowel to the pelvic sidewalls, small bowel to sigmoid colon. At this point, we carefully and tediously lysed adhesions throughout the abdomen. This was quite extensive requiring grea ter than 3 hours to complete. During the lysis of adhesions, there wer e noted to be 2 areas that appeared to be densely adherent to each other and we did oversew these areas for concern of a partial thickness enterorrhaphy. No full-thick ness was appreciated. As we went and lysed the adh esions from proximal to distal, we noted that there was dense inflammatory process in the right lowe r quadrant with a small bowel densely adherent to the righ t pelvic and lower abdominal sidewall. We carefully teased this away and we found the ureter as it c oursed from the abdomen and pelvis, we protected this by sweeping this back to the retroperitoneal plane. There was fibrosis in this a cari as well as the duodenum was pulled up into this area. We then found the small kady l to the transverse colon anastomosis and this also appeared to be stenotic and with some mild infla mmation present. PATIENT NAME: JHONY HOLLIS ACCOUNT #: [id number] We then made a window between healthy appearing transverse colon and the mesentery of the transverse colon as well as the small bowel proximal to the area of stenosis and we took the mesentery with the bipolar vessel sealing device and oversewed this area with 2-0 Vicryl s uture. At this point, the small bowel and trans verse colon were stapled off with blue loads and upon doing so, we oversewed these with running imbricating 3-0 Vicryl suture. At this point, we then made a colotomy and enter otomy for ejeq-jt-segn isoperistaltic anastomosis with one firing of th e 60 mm stapler. We inspected the common channel, which ap peared to be hemostatic and intact. Then, we closed the common channel with a running suture in two layers including an absorbable monofilament suture. We imbricated over this and a few areas with 3-0 Vicryl suture. We palpated the anastomosis, appeared to be inta ct. We then ran the small bowel once again inspecting both sides of the sm all bowel and the mesentery. There was noted to be no other significant abnor mality. We then laid the small bowel back and we had to free up some adhe sions to the sigmoid colon as well and we inspected the colon as well and note d no other significant abnormality. We did run the small bowel a nd measured roughly 175 to 200 cm of small bowel in length. We did close the mesenteric defect of the small bowel with transverse colon anastomosis as well with running Vicryl suture. At this point, the abdomen was checked for hemos tasis, which appeared to be achieved. We then went and closed the abdomen wi th a running monofilament suture of #1 size. This was done for the superior and inferior aspects. We did use 0 Vicryl interrupted sutures as well during the closure. Because we had a port in place before, w e then reinsufflated the abdomen after closure and noted the abdominal wall was intact and closed and we then noted good hemostasis and we remov ed the ports under direct visualization desufflating the abdomen. We then closed the abdominal wall with layers including 3-0 Vicryl and 4-0 Monocryl. We assessed the abdomen as well laparoscopically after the abdominal wall cosure and noted to be with re-approximation of the abdominal wall and good hemostasis. The ports were then removed and clos ed with 4-0 monocryl and skin glue. All counts were correct at the end of the case. The patient tolerated the procedure well and was extubated in the operatin g theater, taken to postanesthesia care in stable condition. Dictated By: Yoel Gallego MD Date Dictated: 06/13/2022 17:35:42 Date Transcribed: 06/13/2022 23:06:30 NORMA/GARRETT/STEVE/PRA PATIENT NAME: JHONY HOLLISYONG ACCOUNT #: [id number] Receipt ID: [id number] Authenticated and Edited by Yoel Gallego MD On 06/14/22 1:45:00 PM at 0147 PATIENT NAME: JHONY HOLLIS JUNG ACCOUNT #: [id number] 2022-06-13 15:06:00-00:00 [facility] ([facility]) Adult General Consultation REPORT#:[id number] REPORT STATUS: Signed DATE:06/13/22 TIME: 1506 PATIENT: JHONY HOLLISBONKatie UNIT #: [id number] ROOM/BED: [facility]- : 45 AGE: 76 SEX: F ATTEND: Yoel Gallego MD ADM AUTHOR: Roberto Sanchez MD * ALL edits or amendments must be made on the [employer]/computer document * History of Present Illness Requesting Clinician: Dr. Gallego Reason for consult: elevated blood pressure Chief complaint: Crohn's HPI: rodent exterminator crohn's (x55 years ), just had an open bowel resection due to extensive adhesions, seen in the [facility] room, some nausea, some abd surgical pain, no cp /sob, no dizzy, no headache, no h/o HTN History - Adult longitudinal Past medical history: Reports: Kidney disease/stones. Additional medical history: Crohn's Past surgical history: Reports: Abdominal surgery. Additional family history: no IBD Smoking status for patients 13 years old or olde r: Never Smoker Allergies: Uncoded Allergies: FERICIT ('PASSED OUT' 02/28/22) HYDROCODONE (ITCH 08/16/08) PERCODAN (ITCH 08/16/08) Review of Systems All systems rev neg: except as marked Objective VS/I O: Last Documented: Result Date Time Pulse Ox 95 06/13 1530 B/P 152/85 06/13 1530 B/P Mean 107 06/13 1530 O2 Delivery Room air 06/13 1530 Temp 97.5 06/13 1530 Pulse 83 06/13 1530 Resp 18 06/13 1530 O2 Flow Rate 10 06/13 1230 24 hour I O ending at 0700: 06/13 0700 06/12 1900 Intake Total Output Total Balance Patient 125 lb Weight Weight Standing scale Measurement Method PATIENT WEIGHT: Weight (lb): 125 Weight (oz): 7.09 Weight (kg): 56.900 General appearance: alert, awake Head/Eyes: normal conjunctiva/sclera ENT: dry mucosal membrane Cardiovascular: regular rate rhythm, normal hear t sounds Respiratory: clear to auscultation (anteriorly) Abdomen: soft, no distention Musculoskeletal: painless range of motion Neuro/VENDOR ANALYST: alert, oriented X 3 Skin: dry, no rash Psychiatry: normal affect Results Results: labs reviewed, vital signs reviewed, cu rrent med profile rev'd Diagnosis, Assessment Plan Free Text DxA P Notes Free Text DxA P Notes: 1. elevated blood pressure-no h/o HTN, likely pa in induced, will start iv metoprolol prn since npo, monitor 2. [id number], repeat cr in am 3. POD#0 bowel resection for Crohn's-npo/ivf/dil audid WEB ADMINISTRATOR pump per CRS 4. insomnia-takes high dose of restoril at home, will start iv ativan prn again since npo 5. gi/dvt ppx-pepcid iv/lovenox thanks for the consult, will follow Electronically Signed by Roberto Sanchez MD on 03/07 at 1804 RPT #:[id number] END OF REPORT 2022-03-17 14:32:00-00:00 [id number] [facility] [address] [place] [address] PATIENT NAME: JHONY HOLLIS ADMIT DATE: 03/14/22 ACCOUNT NO: [id number] ROOM NO: [facility] AGE: 76 SEX: F ADMITTING PHYSICIAN: Yoel Gallego MD ATTENDING PHYSICIAN: Yoel Gallego MD OPERATION DATE: 03/14/2022 ADDENDUM We attempted to edit the operative report, ruthie sykes, did not come through in terms of the final report. REHEATER HELPER: Emiliano Cisneros MD PROCEDURE: 1. Diagnostic laparoscopy with lysis of intraabd ominal adhesions. 2. Laparoscopic-assisted drain placement. Dictated By: Yoel Gallego MD Date Dictated: 03/17/2022 14:32:19 Date Transcribed: 03/17/2022 14:42:58 MARIVEL/JUWAN/ELSAA/SHA Receipt ID: [id number] Authenticated by Yoel Gallego MD On 03/18 08:33:15 AM at 0833 PATIENT NAME: JHONY HOLLIS 2022-03-15 10:48:00-00:00 [facility] ([facility]) Discharge Summary REPORT#:[id number] REPORT STATUS: Signed DATE:03/15/22 TIME: 1048 PATIENT: JHONY HOLLIS UNIT #: [id number] ROOM/BED: [address] : [address] AGE: 76 SEX: F ATTEND: Yoel Gallego MD ADM AUTHOR: Liz Salcido DO * ALL edits or amendments must be made on the [employer]/computer document * General Information Discharge date: 03/15/22 Discharge diagnosis: Crohns Disease Hospital course: Patient was admitted postoperatively and did wel l overnight. She only had serosanguinous drainage from her EVI drain and her diet was advanced. She will be discharged and follow up for future surgery. Med Rec Med Rec Discharge meds: Continue taking these medications: ALPHA LIPOIC ACID (ALPHA LIPOIC ACID) 100 MG CAP 600 MILLIGRAM ORAL FOLIC ACID (FOLIC ACID) 5 MG/ML VIAL 1 MILLIGRAM INTRAVENOUS DAILY. [FISH OIL] Comments: 1000 MG PO DAILY ASCORBIC ACID (VITAMIN C) 500 MG TAB 500 MILLIGRAM ORAL DAILY. FAMOTIDINE (PEPCID) 20 MG TAB 10 MILLIGRAM ORAL DAILY. NORTRIPTYLINE (AVENTYL) 25 MG CAP 25 MILLIGRAM ORAL BEDTIME. CHOLECALCIFEROL (VITAMIN D3) (VITAMIN D3) 50 MCG (2,000 UNIT) CAP 3,000 UNITS ORAL DAILY. [MAGNESIUM] Comments: 400 MG PO DAILY TRAVOPROST (TRAVATAN-Z 0.004% OPHTH) 0.004 % OPH TH.SOLN 1 DROPS EACH EYE BEDTIME. TEMAZEPAM (RESTORIL) 30 MG CAP 30 MILLIGRAM ORAL BEDTIME. [TURMERIC CURCUMIN] Comments: 1000 MG DAILY MELATONIN (MELATONIN) 5 MG TAB 10 MILLIGRAM ORAL BEDTIME. Start taking the following new medications: traMADol (ULTRAM) 50 MG TAB 50 MILLIGRAM ORAL EVERY 6 HOURS NEEDED. as n eeded for MODERATE PAIN SCALE 4-6 Days = 5 Qty = 20 No Refills Discharge Instructions PCP )( Discharge to: Home/Self Care Discharge Instructions Additional Discharge Routines: Attending Follow- Up )( Diet: Regular )( Activity: Resume Normal Activity Follow-up Appointments Attending Physician: Attending Physician: Yoel Gallego MD Electronically Signed by Liz Salcido DO on at 1049 RPT #:[id number] END OF REPORT 2022-03-15 10:35:00-00:00 [facility] ([facility]) Colorectal Surgery Prog Note REPORT#:[id number] REPORT STATUS: Signed DATE:03/15/22 TIME: 1035 PATIENT: JHONY HOLLIS UNIT #: [id number] ROOM/BED: [address] : 45 AGE: 76 SEX: F ATTEND: Yoel Gallego MD ADM AUTHOR: Liz Salcido DO * ALL edits or amendments must be made on the [employer]/computer document * General Date of surgery: 03/14/22 Status post: Diagnostic laparoscopic Subjective HPI: She is doing well today. She is tolerating a rolanda ar liquid diet without any nausea/emesis. She is passing flatus. Denies any bms. Objective General VS/I O: Last Documented: Result Date Time Pulse Ox 94 03/15 736 B/P 105/62 03/15 736 B/P Mean 76.3 03/15 736 Temp 98.6 03/15 736 Pulse 99 03/15 736 Resp 14 03/15 736 O2 Delivery Room air 03/15 0339 O2 Flow Rate 10 03/14 1618 24 hour I O ending at 0700: 03/15 0700 03/14 1900 Intake Total 900.00 1200.00 Output Total 905 509 Balance -5.00 691.00 Intake, IV 900.00 1200.00 Output, 5 4 Drainage Output, 5 Estimated Blood Loss Output, Urine 900 500 Patient 55 kg Weight Weight Standing scale Measurement Method PATIENT WEIGHT: Weight (lb): 121 Weight (oz): 4.07 Weight (kg): 55.000 Physical Exam Abdomen: non-tender, soft, no distention, no gua rding, EVI serosanguinous Diagnosis, Assessment Plan Hospital course to date: 76 yo F POD#1 from diagnostic laparoscopic with EVI drain placement. 1. She's doing well today, has no complaints. 2. Removed her lee. Void check in 6 hours. 3. Advance diet. 4. Plan for discharge later today after removal of EVI drain. Liz Salcido Electronically Signed by Liz Salcido DO on at 1039 [facility] #:[id number] END OF REPORT 2022-03-14 10:45:00-00:00 [id number] [facility] [address], [place] [address] PATIENT NAME: JHONY HOLLIS ADMIT DATE: 03/14/22 ACCOUNT NO: [id number] ROOM NO: [facility] AGE: 76 SEX: F ADMITTING PHYSICIAN: Yoel Gallego MD ATTENDING PHYSICIAN: Yoel Gallego MD OPERATION DATE: 03/14/2022 SURGEON: Yoel Gallego M.D. REHEATER HELPER: Dr. Reshma Cisneros PREOPERATIVE DIAGNOSES: Crohn's disease with ter swati ileal stricture and transverse colon stricture, history of ileocolic resection. POSTOPERATIVE DIAGNOSES: Crohn's disease with te rminal ileal stricture and transverse colon stricture, history of ileocolic resection, dense and diffuse intra-abdominal adhesions. PROCEDURE: ANESTHESIA: General. DEVICES: None. IMPLANTS: A 15 round Greg drain placed through one of the port sites. COMPLICATIONS: None apparent. INDICATIONS: The patient is a 76-year-old female with history of Crohn's disease, status post multipl e surgeries including a paramedian on the right and a midline with ileocolic resection in th e past. These are from a long time ago and she presents due to endoscopic findings of s tenosis as well as an imaging study that showed narrowing of the terminal ileu m and colon. FINDINGS: Entry into the abdomen was achieved vi a Optiview technique in the left upper quadrant. Upon entry into the abdomen , there was noted to be adhesions around our entry port. We then careful ly were able to visualize and lateral to this point, there were some free spac e and superior to this, there was some free space. Therefore, we placed anothe r port in this area. Then, we carefully lysed the adhesions around this area a nd we saw that the trocar entered into the abdomen just lateral to a loop of bowel. The visualized portion of the midline and lower abdomen was den sely adherent with bowel and omentum. There appeared to be significant interl oop adhesions as well. We did have a small window that we could create in the upper abdomen and we noted that there was relatively free adhesions i n the right upper quadrant. At this point, we inspected the port sit es once again and there did not appear PATIENT NAME: JHONY HOLLIS 2 to be any injury to the small bowel. There was s ome slight oozing from the dissection. Therefore, we left a drain to help d ecompress the abdomen. The abdomen also did not fully distend even though w e were intraperitoneal. This was secondary to the adhesions. We left a drain to help decompress and to make sure that there was no missed injury at this are a. During the case, we actually took images and we are attempting to get these printed. However, we discussed the findings with the family. We informed that there is a strong chance that an open procedure may be required as well as unknown amount of small bowel resection and colo n resection. We would have to get 2 healthy areas to reach to each other, whic h may be very challenging. They were concerned that she would require an ex ploratory laparotomy and prolonged hospital stay. She is also rel atively asymptomatic from this at this time. We informed her that she cou ld progress and become obstruction. They state they understand this risk and they would like to disc uss this with her before initiating any other surgical intervention. At this point, the ports were removed un laura direct visualization and the drain was inserted and sutured into place. Port sites were closed with 4-0 Monocryl and Laura mabond and the abdomen was desufflated. All counts were correct at the end of the case. PROCEDURE IN DETAIL: The patient was seen and ev aluated in preoperative holding. Proper consents were obtained. All que stions were answered prior to taking back to the operating theater. The patien t was taken back to the operating theater, placed in supine position. Th e patient underwent general anesthesia by anesthesia staff. Proper timeout occurred with everyone in agreeme nt of procedure. Lee catheter was placed by OR team. Rigid proctoscopy was performed at the b eginning of the case and a significant amount of liquid stool was present in the rectum and we suctioned this. We then prepped and draped the abdomen in normal sterile fashion. At this point, she had received IV antibiotics, had bilateral lower extremity SCDs in place and was secured to the table and p added appropriately. Entry to the abdomen was achieved via [employer] in the left upper quadrant. The entry into the abdomen was noted to be with adhesions around the port. We carefully went around 1 adhesion. We we re able to visualize the abdominal wall in the lateral aspect of this port and superior. At this point, we added another port in thi s area and dissected around this port to free up the adhesions. We noted that there was a loop of bow el that was very close to the entry to the abdominal wall from the lower port and we wanted to make sure that there was no inadvertent injury to this area. It appeared that there was no injury once we did so, but t he bowel was rolled right near to where the port was PATIENT NAME: JHONY HOLLIS 2 then placed. At this point, we continued to lyse some adhesio ns, but noted that there were significant adhesions and these were interloop a s well as small bowel to the anterior abdominal wall and omentum to the anter ior abdominal wall. These adhesions were all within the midline and right of midline where her prior incisions were, also in the pelvis. At this point, we did find a small window at the level of the falciform, that is where the stomach was actually adherent to, but we were able to visualize and there did appear to be relatively paucity of adh esions in the right upper quadrant. At this point, we talked to the family. We infor med them that there is a very strong chance that we would have to perform an o pen procedure and find 2 healthy-appearing loops of bowel. This might be very challenging. We informed the family that the recovery would be lo nger with the open procedure and there is still a possibility of an ostomy. They stated they understood and they wished to discuss this with her. We informed the m that if she elected not to have the open procedure or be prepared f or this, she could progress and have a blockage of small bowel or colon. They s garcia they understand and would wish to discuss this with her further. At this point, we went back to the operating room and we placed a 15 round Greg drain through the port that was very michelle se to the bowel into the abdomen. This was then secured to the skin and this was placed under direct visualization. The ports were then removed and the port site was closed with 4-0 Monocryl and Dermabond and the other drain stitch was secured into place. At this point, the abdomen was desufflat ed. All counts were correct at the end of the case. Dictated By: Yoel Gallego MD Date Dictated: 03/14/2022 10:45:16 Date Transcribed: 03/14/2022 12:17:03 MARIVEL/NANCY/KENNEY/SEGUNDO Receipt ID: [id number] Authenticated and Edited by Yoel Gallego MD On 03/17/22 1:37:05 PM at 0139 PATIENT NAME: JHONY HOLLIS 2
--- NOTE | 2022-06-30 20:17 | RAD REPORT ---
EXAM DESCRIPTION: CT - CTHCSPWOC - 06/30/2022 7:37 pm CLINICAL HISTORY: PAIN COMPARISON: No comparisons TECHNIQUE: Axial thin cut noncontrast CT images of the head were obtained. Axial thin cut noncontrast CT images of the cervical spine were obtained. Multiplanar reformatted images were generated and reviewed. All CT scans are performed using dose optimization technique as appropriate and may include automated exposure control or mA/KV adjustment according to patient size. FINDINGS: CT HEAD WITHOUT CONTRAST: No acute hemorrhage, hydrocephalus or extra-axial collection is identified.Patchy periventricular and deep white matter hypodensities, nonspecific, most suggestive of chronic small vessel ischemic reyes es.No areas of brain edema or midline shift. The paranasal sinuses and mastoids are clear.The calvarium is intact. CT CERVICAL SPINE WITHOUT CONTRAST: No fracture or subluxation.No prevertebral soft tissues swelling is identified. IMPRESSION: No acute traumatic intracranial or cervical spine findings.
[2022-06-30] MEDS ORDERED: ACETAMINOPHEN 325 MG TABLET ONE (20:58)
--- NOTE | 2022-06-30 20:58 | RAD REPORT ---
EXAM DESCRIPTION: CT - Chest Abd Pelvis Wo Con - 06/30/2022 8:20 pm CLINICAL HISTORY: Pain;Trauma COMPARISON: THORAX W CONTRAST dated 04/03/2015; Head C Spine Mpr Wo Con dated 06/30/2022 TECHNIQUE: Thin axial noncontrast CT images of the chest, abdomen, and pelvis, were obtained. Multip lanar reformats were generated and reviewed. . All CT scans are performed using dose optimization technique as appropriate and may include automated exposure control or mA/KV adjustment according to patient size. FINDINGS: The lungs are clear.No pleural or pericardial effusion.No intrathoracic adenopathy. The liver, spleen, pancreas, adrenal glands and kidneys are within normal limits, apart from nonobstr ucting 2-3 millimeter right superior renal pole calculus. . No bowel obstruction, free air, free fluid or abscess. Sequelae of right hemicolectomy with enterocol ic anastomosis in the central abdomen. . No pathologic lymphadenopathy in the abdomen or pelvis. Air-fluid level is seen in the bladder, could relate to recent catheterization or sequelae of infecti on. Fat stranding as well as lobulated soft tissue density structures noted along the right anterior abdo swati wall, could relate to an injection granuloma. Superior endplate compression deformity at T11, with 20% loss of height. No significant retropulsion. IMPRESSION: Air-fluid levels noted in the bladder, may be related to recent catheterization or seque lae of infection. Nonobstructing right superior renal pole 2-3 millimeter calculus. Superior endplate compression deformity at T11, could be acute or recent. No other acute findings in the chest, abdomen, or pelvis.
[2022-06-30] MEDS ORDERED: ONDANSETRON 4 MG (ODT) TAB ONE (20:59)
[2022-06-30] MEDS ORDERED: BACI/NEOMYCIN/POLY OINT 15GM TOP ONE (20:59)
--- NOTE | 2022-06-30 20:59 | RAD REPORT ---
EXAM DESCRIPTION: RAD - Forearm Right - 06/30/2022 8:43 pm CLINICAL HISTORY: PAIN COMPARISON: Chest Abd Pelvis Wo Con dated 06/30/2022 TECHNIQUE: Right forearm, 2 views. FINDINGS: Buckle fracture of the distal radial metaphysis. There is no dislocation or periosteal cari ction noted. No foreign body or other soft tissue abnormality. IMPRESSION: Buckle fracture of the distal radial metaphysis.
--- NOTE | 2022-06-30 21:28 | ER ---
Nurse's Notes [facility] Name: Sabrina Pool Age: 76 yrs Sex: Female : 1945 Arrival Date: 06/30/2022 Time: 19:11 Bed 8 Private MD: Diagnosis: Fall on same level, unspecified;Low back pain;Abrasion of right forearm;Contusion of right wrist Presentation: 06/30 19:21 Chief complaint: Patient states: Missed the curb and fell back and hit back of head on vg1 concrete around 1400. Denies LOC, denies h/a, blood thinners, N/V, dizziness, or blurred vision. Stated took Tylenol #3 around 1530. C/o Right arm pain and lower back. Care prior to arrival: None. Mechanism of Injury: Fall from standing position. 19:21 Acuity: JANET 3 vg1 19:21 Method Of Arrival: Ambulatory vg1 19:26 Coronavirus screen: Vaccine status: Patient reports receiving the 2nd dose of the covid vg1 vaccine. Client denies travel out of the [place] in the last 14 days. Ebola Screen: Patient negative for fever greater than or equal to 101.5 degrees Fahrenheit, and additional compatible Ebola Virus Disease symptoms Patient denies exposure to infectious person. Patient denies travel to an Ebola-affected area in the 21 days before illness onset. Initial Sepsis Screen: Does the patient meet any 2 criteria? HR > 90 bpm. No. Patient's initial sepsis screen is negative. Does the patient have a suspected source of infection? No. Patient's initial sepsis screen is negative. Risk Assessment: Do you want to hurt yourself or someone else? Patient reports no desire to harm self or others. Onset of symptoms was June 30, 2022 at 14:00. 22:03 Trauma event details: Injury occurred in the [facility]. ha1 Trauma Activation: Physician: ED Physician; Name: William; Notified At: 19:11; Arrived At: Physician: General Surgeon; Name: ; Notified At: 19:11; Arrived At: Physician: Radiology; Name: ; Notified At: 19:11; Arrived At: Physician: Respiratory; Name: ; Notified At: 19:11; Arrived At: Physician: Niraj; Name: ; Notified At: 19:11; Arrived At: Historical: - Allergies: 19:26 Hydrocodone; vg1 - Home Meds: 19:26 Nortriptyline Oral [Active]; vg1 - PMHx: 19:26 Crohns; vg1 - PSHx: 19:26 Bowel Reconstruction; vg1 - Immunization history: Last tetanus immunization: unknown. - Social history:: Smoking status: Patient denies any tobacco usage or history of. Screenin:21 Abuse screen: Denies threats or abuse. Denies injuries from another. Nutritional vg1 screening: No deficits noted. Tuberculosis screening: No symptoms or risk factors identified. 19:28 [facility] ED Fall Risk Assessment (Adult) History of falling in the last 3 months, ha1 including since admission Yes- single mechanical fall (1 pt) Confusion or Disorientation No (0 pts) Intoxicated or Sedated No (0 pts) Impaired Gait No (0 pts) Mobility Assist Device Used Yes (1 pt) Altered Elimination No (0 pt) Score/Fall Risk Level 0 - 2 = Low Risk Oriented to surroundings, Maintained a safe environment, Educated pt \T\ family on fall prevention, incl call for assistance when getting out of bed, Hourly rounding (assess needs \T\ fall precautionary measures) done. Primary Survey: 19:21 NO uncontrolled hemorrhage observed. A: The client is awake and alert. The airway is vg1 patent. Breathing/Chest: Spontaneous respiratory effort, equal unlabored respirations, breath sounds clear bilaterally, regular pattern, symmetrical chest rise and fall. Circulation: No external hemorrhage present. Regular and strong central pulse, skin warm/dry/normal color. Disability Client is alert. Exposure/Environment: All clothing and personal items were removed. Forensic evidence collection is not deemed to be indicated at this time. Items placed in patient belonging bag. There is no evidence of uncontrolled external bleeding. appears to have skin tear to right forearm. 22:02 Reassessment Breathing: Spontaneous respiratory effort, equal unlabored respirations, ha1 breath sounds clear bilaterally, regular pattern with symmetrical chest rise and fall. Secondary Survey: 19:21 HEENT: Head No injury/deformity. Gastrointestinal: No deficits noted. : No deficits vg1 noted. Musculoskeletal: No deficits noted. Assessment: 19:21 General: Appears in no apparent distress. uncomfortable, Behavior is calm, cooperative. vg1 Pain: Complains of pain in back and right arm. Derm: appears to have a skin tear to Right forearm. 19:33 General: Appears in no apparent distress. uncomfortable, Behavior is calm, cooperative. kd3 Pain: Complains of pain in right arm and back. Neuro: Level of Consciousness is awake, alert, obeys commands, Oriented to person, place, time, situation. Cardiovascular: Patient's skin is warm and dry. Respiratory: Airway is patent Trachea midline Respiratory effort is even, unlabored, Respiratory pattern is regular, symmetrical. 19:34 General: pt taken to CT, directly from triage. Pt assessed by this RN in the hallway kd3 prior. . 20:50 Reassessment: Patient and/or family updated on plan of care and expected duration. Pain ha1 level reassessed. Patient is alert, oriented x 3, equal unlabored respirations, skin warm/dry/pink. Patient denies pain at this time. 21:50 Reassessment: Patient and/or family updated on plan of care and expected duration. Pain ha1 level reassessed. Patient is alert, oriented x 3, equal unlabored respirations, skin warm/dry/pink. Vital Signs: 19:21 BP 137 / 75; Pulse 99; Resp 16; Temp 98.5(TE); Pulse Ox 98% on R/A; Weight 54.43 kg; vg1 Height 5 ft. 0 in. ; Pain 6/10; 20:50 BP 143 / 67; Pulse 80; Resp 19 S; Pulse Ox 98% on R/A; ha1 21:50 BP 140 / 68; Pulse 80; Resp 18; Pulse Ox 98% on R/A; ha1 19:21 Body Mass Index 23.44 (54.43 kg, 152.4 cm) vg1 19:21 Pain Scale: Adult vg1 Mart Coma Score: 19:21 Eye Response: spontaneous(4). Motor Response: obeys commands(6). Verbal Response: vg1 oriented(5). Total: 15. Trauma Score (Adult): 19:21 Eye Response: spontaneous(1); Verbal Response: oriented(1); Motor Response: obeys vg1 commands(2); Systolic BP: > 89 mm Hg(4); Respiratory Rate: 10 to 29 per min(4); Bates Score: 15; Trauma Score: 12 ED Course: 19:14 Patient arrived in ED. jj6 19:21 Patient has correct armband on for positive identification. vg1 19:21 Patient maintains SpO2 saturation greater than 95% on room air. vg1 19:22 Zachary Thomas MD is Attending Physician. constantine 19:23 Triage completed. vg1 19:26 Arm band placed on. vg1 19:29 Natalia Willingham, YVON is Primary Nurse. kd3 19:33 No provider procedures requiring assistance completed. kd3 19:39 CT Head C Spine In Process Unspecified. EDMS 20:22 CT Chest Abdomen Pelvis W/O Contrast In Process Unspecified. EDMS 20:25 Attending Physician role handed off by Zachary Thomas MD sp3 20:25 Arslan Aquino MD is Attending Physician. sp3 20:45 Forearm Right XRAY In Process Unspecified. EDMS 21:27 Javier Clarke MD is Referral Physician. sp3 21:47 Christo wrap to right wrist and right arm Orthoglass splint: Thumb spica splint applied on jb5 right forearm. Sling applied to right arm. 22:01 Patient did not have IV access during this emergency room visit. ha1 22:01 Thermoregulation: warm blanket given to patient. ha1 Administered Medications: 20:50 Drug: Acetaminophen PO 650 mg Route: PO; ha1 21:30 Follow up: Response: No adverse reaction; Pain is decreased ha1 20:50 Drug: Ondansetron PO 4 mg Route: PO; ha1 21:30 Follow up: Response: No adverse reaction; Nausea is decreased ha1 21:09 Drug: Bchtfhmx-Abfxyllvxv-Rjfwwkhop Topical Ointment 1 application Route: Topical; ha1 Site: right forearm; 21:30 Follow up: Response: No adverse reaction ha1 Medication: 22:01 VIS not applicable for this client. ha1 Intake: 22:02 PO: 120ml; Total: 120ml. ha1 Output: 22:02 Urine: 0ml; Total: 0ml. ha1 Outcome: 21:27 Discharge ordered by . sp3 22:00 Discharged to home via wheelchair, with family. ha1 22:00 Condition: stable 22:00 Discharge instructions given to patient, family, Instructed on discharge instructions, follow up and referral plans. medication usage, Demonstrated understanding of instructions, follow-up care, medications, Prescriptions given X 1. 22:04 Patient's length of stay in the Emergency Department was greater than 2 hours. ha1 22:05 Patient left the ED. ha1 Signatures: Dispatcher [employer] EDMS Zachary Thomas MD MD cha Broussard, Jennifer jb5 Garcia, Victoria RN RN vg1 Arslan Aquino MD MD sp3 Layla Riggs6 Natalia Willingham RN RN kd3 Odilia Alberto, YVON RN ha1 Corrections: (The following items were deleted from the chart) 19:28 19:26 Patient placed vg1 vg1
--- NOTE | 2022-06-30 21:28 | EDPHYS ---
Physician Documentation [facility] Name: Sabrina Pool Age: 76 yrs Sex: Female : 1945 Arrival Date: 06/30/2022 Time: 19:11 Bed 8 Private MD: ED Physician Arslan Aquino HPI: 06/30 19:55 This 76 yrs old Female presents to ER via Ambulatory with complaints of Fall constantine Injury, Head Injury Without LOC-Adult. 19:55 Details of fall: The patient fell from an upright position, while walking. Onset: The constantine symptoms/episode began/occurred just prior to arrival. Associated injuries: The patient sustained injury to the head, right wrist and palmar aspect of right forearm, decreased range of motion, painful injury, swelling, lumbar area, decreased range of motion, painful injury. Severity of symptoms: At their worst the symptoms were mild, moderate, in the emergency department the symptoms are unchanged. The patient has not experienced similar symptoms in the past. Historical: - Allergies: 19:26 Hydrocodone; vg1 - Home Meds: 19:26 Nortriptyline Oral [Active]; vg1 - PMHx: 19:26 Crohns; vg1 - PSHx: 19:26 Bowel Reconstruction; vg1 - Immunization history: Last tetanus immunization: unknown. - Social history:: Smoking status: Patient denies any tobacco usage or history of. ROS: 19:56 Constitutional: Negative for fever, chills, and weight loss, Eyes: Negative for injury, constantine pain, redness, and discharge, ENT: Negative for injury, pain, and discharge, Neck: Negative for injury, pain, and swelling, Cardiovascular: Negative for chest pain, palpitations, and edema, Respiratory: Negative for shortness of breath, cough, wheezing, and pleuritic chest pain, Abdomen/GI: Negative for abdominal pain, nausea, vomiting, diarrhea, and constipation, : Negative for injury, bleeding, discharge, and swelling, Skin: Negative for injury, rash, and discoloration, Neuro: Negative for headache, weakness, numbness, tingling, and seizure. 19:56 Back: Positive for decreased range of motion, pain at rest, pain with movement, of the lumbar area. 19:56 MS/extremity: Positive for decreased range of motion, pain, swelling, tenderness, of the back and right arm. 19:56 Skin: Positive for abrasion(s), of the palmar aspect of right forearm. Exam: 19:56 Constitutional: This is a well developed, well nourished patient who is awake, alert, constantine and in no acute distress. Head/Face: Normocephalic, atraumatic. Eyes: Pupils equal round and reactive to light, extra-ocular motions intact. Lids and lashes normal. Conjunctiva and sclera are non-icteric and not injected. Cornea within normal limits. Periorbital areas with no swelling, redness, or edema. ENT: Nares patent. No nasal discharge, no septal abnormalities noted. Tympanic membranes are normal and external auditory canals are clear. Oropharynx with no redness, swelling, or masses, exudates, or evidence of obstruction, uvula midline. Mucous membranes moist. Neck: Trachea midline, no thyromegaly or masses palpated, and no cervical lymphadenopathy. Supple, full range of motion without nuchal rigidity, or vertebral point tenderness. No Meningismus. Chest/axilla: Normal chest wall appearance and motion. Nontender with no deformity. No lesions are appreciated. Cardiovascular: Regular rate and rhythm with a normal S1 and S2. No gallops, murmurs, or rubs. Normal PMI, no JVD. No pulse deficits. Respiratory: Lungs have equal breath sounds bilaterally, clear to auscultation and percussion. No rales, rhonchi or wheezes noted. No increased work of breathing, no retractions or nasal flaring. Abdomen/GI: Soft, non-tender, with normal bowel sounds. No distension or tympany. No guarding or rebound. No evidence of tenderness throughout. Female : Normal external genitalia. Skin: Warm, dry with normal turgor. Normal color with no rashes, no lesions, and no evidence of cellulitis. Neuro: Awake and alert, GCS 15, oriented to person, place, time, and situation. Cranial nerves II-XII grossly intact. Motor strength 5/5 in all extremities. Sensory grossly intact. Cerebellar exam normal. Normal gait. Psych: Awake, alert, with orientation to person, place and time. Behavior, mood, and affect are within normal limits. 19:56 Back: pain, that is mild, of the lumbar area, ROM is painful, normal spinal alignment noted, CVA tenderness, is absent, muscle spasm, is not present. 19:56 Musculoskeletal/extremity: ROM: limited active range of motion due to pain, limited passive range of motion due to pain, in the right arm, Circulation is intact in all extremities. Sensation intact. Compartment Syndrome exam of affected extremity: is normal. Weight bearing: able to fully bear weight, without difficulty, DVT Exam: no pain, no swelling, no tenderness, negative Homans' sign noted on exam, no appreciated bluish discoloration, no erythema, no increased warmth. 19:56 Skin: injury, abrasion(s), small abrasion noted, of the palmar aspect of right forearm. Vital Signs: 19:21 BP 137 / 75; Pulse 99; Resp 16; Temp 98.5(TE); Pulse Ox 98% on R/A; Weight 54.43 kg; vg1 Height 5 ft. 0 in. ; Pain 6/10; 20:50 BP 143 / 67; Pulse 80; Resp 19 S; Pulse Ox 98% on R/A; ha1 21:50 BP 140 / 68; Pulse 80; Resp 18; Pulse Ox 98% on R/A; ha1 19:21 Body Mass Index 23.44 (54.43 kg, 152.4 cm) vg1 19:21 Pain Scale: Adult vg1 Mart Coma Score: 19:21 Eye Response: spontaneous(4). Motor Response: obeys commands(6). Verbal Response: vg1 oriented(5). Total: 15. Trauma Score (Adult): 19:21 Eye Response: spontaneous(1); Verbal Response: oriented(1); Motor Response: obeys vg1 commands(2); Systolic BP: > 89 mm Hg(4); Respiratory Rate: 10 to 29 per min(4); Milbank Score: 15; Trauma Score: 12 MDM: 19:22 Patient medically screened. [facility] 20:00 Differential diagnosis: abrasion, closed head injury, contusion, fracture, multiple constantine trauma, sprain, strain. Data reviewed: vital signs, nurses notes, lab test result(s), radiologic studies, CT scan, plain films. Consideration of Admission/Observation Escalation of care including admission/observation considered. I considered the following discharge prescriptions or medication management in the emergency department Medications were administered in the Emergency Department. See MAR. Test considered but Not performed: Labs: NO LABS. Care significantly affected by the following chronic conditions: CROHNS , RECENT ABD RESECTION. 21:25 ED course: Patient has a T11 endplate compression fracture which will not need any sp3 immediate intervention. Right forearm will be splinted secondary to buckle fracture of the distal radius. Follow-up with orthopedics as needed. I have explained all of this to patient and family and they have no further questions at this time.. 06/30 19:22 Order name: CT Head C Spine; Complete Time: 20:56 [facility] 06/30 19:55 Order name: CT Chest Abdomen Pelvis W/O Contrast; Complete Time: 21:17 [facility] 06/30 19:55 Order name: Forearm Right XRAY; Complete Time: 21:17 [facility] 06/30 19:55 Order name: Ice pack; Complete Time: 20:02 [facility] 06/30 21:26 Order name: Splint - Thumb Spica: Right side; Complete Time: 21:59 sp3 Administered Medications: 20:50 Drug: Acetaminophen PO 650 mg Route: PO; ha1 21:30 Follow up: Response: No adverse reaction; Pain is decreased ha1 20:50 Drug: Ondansetron PO 4 mg Route: PO; ha1 21:30 Follow up: Response: No adverse reaction; Nausea is decreased ha1 21:09 Drug: Dsbqnlyv-Bqvwotrnhw-Sqrtaqdqj Topical Ointment 1 application Route: Topical; ha1 Site: right forearm; 21:30 Follow up: Response: No adverse reaction ha1 Disposition Summary: 06/30/22 21:27 Discharge Ordered Location: Home sp3 Problem: new sp3 Symptoms: have improved sp3 Condition: Stable sp3 Diagnosis - Fall on same level, unspecified sp3 - Low back pain sp3 - Abrasion of right forearm sp3 - Contusion of right wrist sp3 Followup: constantine - With: Private Physician - When: 2 - 3 days - Reason: Recheck today's complaints, Continuance of care, Re-evaluation by your physician Followup: constantine - With: - When: 2 - 3 days - Reason: Recheck today's complaints, Re-evaluation by your physician Discharge Instructions: - Discharge Summary Sheet constantine - Abrasion constantine - Chronic Back Pain constantine - Abrasion, Dyoq-xe-Vvbf constantine - Spinal Compression Fracture sp3 - Wrist Fracture Treated With Immobilization sp3 Forms: - Medication Reconciliation Form sp3 - Thank You Letter sp3 - Antibiotic Education sp3 - Prescription Opioid Use sp3 Prescriptions: - Tylenol 325 mg Oral Tablet - take 2 tablets by ORAL route every 6 hours as needed; 30 tablet; Refills: 0, constantine Product Selection Permitted Signatures: Dispatcher [employer] EDMS Zachary Thomas MD MD cha Garcia, Victoria, RN RN vg1 Arslan Aquino MD MD sp3 Odilia Alberto RN RN ha1 Corrections: (The following items were deleted from the chart) 20:21 19:55 Wrist Right 3 View+RAD.RAD.[email or web address] ordered. EDMS EDMS
[2022-06-30 22:24] VITALS: TEMP 98.5; O2SAT 98
[2022-06-30 22:27] VITALS: BP 140/68
== END 2022-06-30 22:05 | disposition home or self-care (01) ==
LOC: ER 19:11
DX: S50.811A Abrasion of right forearm, initial encounter (principal); S60.211A Contusion of right wrist, initial encounter; M54.50 Low back pain, unspecified; W18.30XA Fall on same level, unspecified, initial encounter; Z88.5 Allergy status to narcotic agent
CPT/HCPCS: 70450; 71250; 72125; 74176; 73090; 99284; Q0162

== ENCOUNTER 2023-07-07 15:29 | Emergency (ER) | payer OTHER ==
[2023-07-07] MEDS ORDERED: ACETAMINOPHEN 500 MG TAB ONE (16:12)
[2023-07-07 16:25] LABS: PT Prothrombin Time 12.7 SECONDS (9.5-12.5); PTT, Activated Partial Thromb 32.2 SECONDS (24.3-36.9); Protime INR 1.16
[2023-07-07 16:27] LABS: Absolute Basophils 0.1 K/uL (0-0.5); Absolute Lymphocytes (CBC) 0.2 K/uL (0.7-4.9); Absolute Monocytes 0.4 K/uL (0.1-1.3); Absolute Neutrophil 21.9 K/uL (1.8-8.0); Basophils % 0.3 % (0-1.3); Hematocrit 36.8 % (36.0-45.0); Hemoglobin 11.5 g/dL (12.0-15.0); Lymphocytes % 1.1 % (15.3-44.8); MCH 28.4 pg (27.0-35.0); MCHC 31.2 g/dL (32.0-36.0); MCV 91.1 fL (80-100); MPV 8.5 fL (7.6-11.3); Monocytes % 1.7 % (3.3-12.3); Neutrophils % 96.9 % (41.7-73.7); Platelets 155 thou/uL (152-406); RBC Red Blood Cell Count 4.04 M/uL (3.86-4.86)
[2023-07-07] MEDS ORDERED: NA CHLORIDE 0.9% 1,000 ML ONE ×2 (16:31→16:37)
[2023-07-07 16:45] LABS: ALT/SGPT < 14 U/L (13-56); AST/SGOT 16 U/L (15-37); Albumin 2.7 g/dL (3.4-5.0); Albumin/Globulin Ratio 0.7 (1.1-1.8); Alkaline Phosphatase 69 U/L (45-117); Anion Gap 13.7 mEq/L (5.0-15.0); BUN Blood Urea Nitrogen 31 mg/dL (7-18); Bicarbonate 16 mEq/L (21-32); Bilirubin Total 1.8 mg/dL (0.2-1.0); Globulin 3.9 g/dL (2.3-3.5); Glomerular Filtration Rate 22 ml/min (=/>90); Glucose Level 114 mg/dL (74-106); Potassium 3.7 mEq/L (3.5-5.1); Protein, Total 6.6 g/dL (6.4-8.2); Sodium Level 135 mEq/L (136-145)
[2023-07-07] MEDS ORDERED: CEFEPIME 1 GM/VIAL ONE (17:00)
[2023-07-07] MEDS ORDERED: NA CHLORIDE 0.9% 100 ML ONE (17:00)
[2023-07-07 17:05] LABS: INFLUENZA A NAA NEGATIVE (NEGATIVE); RESPIRATORY SYNCYTIAL VIR NAA NEGATIVE (NEGATIVE); SARS-COV-2 RT PCR NEGATIVE (NEGATIVE)
--- NOTE | 2023-07-07 17:29 | RAD REPORT ---
EXAM DESCRIPTION: CT - Head Brain Wo Cont - 07/07/2023 5:09 pm CLINICAL HISTORY: Alteration of awareness/confusion COMPARISON: 2022 TECHNIQUE: Computed axial tomography of the head was obtained. IV contrast was not requested. All CT scans are performed using dose optimization technique as appropriate and may include automated exposure control or mA/KV adjustment according to patient size. FINDINGS: An intracranial bleed is not seen The ventricles are normal in caliber No extra-axial fluid collection is noted. Mild to moderate low-density areas within periventricular, deep and subcortical white matter likely r epresent ischemic changes secondary to small vessel disease. Fluid within the sinuses/ mastoids is not seen. IMPRESSION: No acute intracranial abnormality is seen If patient's symptoms persist MRI of the brain would be recommended
--- NOTE | 2023-07-07 17:39 | RAD REPORT ---
EXAM DESCRIPTION: CT - Chest Abd Pelvis Wo Con - 07/07/2023 5:09 pm CLINICAL HISTORY: Chest and abdominal pain. Fever. Vomiting and diarrhea COMPARISON: 2019. TECHNIQUE: Computed axial tomography of the chest, abdomen and pelvis was obtained. Oral contrast wa s given. IV contrast was not requested. All CT scans are performed using dose optimization technique as appropriate and may include automated exposure control or mA/KV adjustment according to patient size. FINDINGS: The evaluation of mediastinum, jaclyn, vessels and solid organs is limited secondary to the lack of IV contrast administration The lungs are clear No mediastinal or hilar lymphadenopathy is seen. A pleural effusion is not present. A pericardial effusion is not seen. Moderate right hydronephrosis. Right ureter dilated. 8 millimeter calculus distal right ureter Progression in a compression fracture T11 vertebral body estimated 65% loss of height. Retropulsion o f bone results in approximately 25% narrowing spinal canal Liver, spleen, pancreas, adrenals and left grossly. No evidence diverticulitis. Hysterectomy. No adnexal mass IMPRESSION: 8 millimeter calculus distal right ureter resulting in moderate right hydronephrosis Progression in a compression fracture T11 vertebral body estimated 65% loss of height. Retropulsion o f bone results in approximately 25% narrowing spinal canal
--- NOTE | 2023-07-07 17:40 | RAD REPORT ---
EXAM DESCRIPTION: Mamta Single View07/07/2023 4:40 pm CLINICAL HISTORY: Fever COMPARISON: 2022 FINDINGS: The lungs appear clear of acute infiltrate. The heart is normal size IMPRESSION: No acute abnormalities displayed
[2023-07-07 18:13] LABS: Specific Gravity 1.019 (1.005-1.030); Sqamous Epithelial <5 /HPF (None Seen); Urine Bacteria 20-50 /HPF (<20); Urine Bilirubin NEGATIVE (Negative); Urine Blood 1+ (Negative); Urine Clarity Extremely Turbid (Clear); Urine Color Yellow (Yellow); Urine Culture Reflex Order REFLEXED; Urine Glucose NEGATIVE (Negative); Urine Ketones NEGATIVE (Negative); Urine Microscopic Reflex YN ORDER UMIC; Urine Mucus Slight /HPF (None Seen); Urine Nitrite NEGATIVE (Negative); Urine Protein 1+ (Negative); Urine RBC <5 /HPF (None Seen); Urine Urobilinogen Normal (Normal); Urine WBC 20-50 /HPF (<5); Urine WBC Clump Rare /HPF (None Seen); Urine Yeast (Budding) Trace /HPF (None Seen); Urine pH 5.5 (5.0-7.0)
[2023-07-07 19:54] LABS: Band Neutrophils 14 % (0-1); Blood Morphology Comment NOT SEEN (NOT SEEN); Differential Total Cells Count 100; Lymphocytes 3 % (15-42); Monocytes 2 % (0-10); Platelet Estimate ADEQ; Segmented Neutrophils 81 % (40-80)
--- NOTE | 2023-07-07 20:24 | ER ---
Nurse's Notes [facility] Name: Sabrina Pool Age: 77 yrs Sex: Female : 1945 Arrival Date: 07/07/2023 Time: 15:29 Bed 8 Private MD: Diagnosis: Acute kidney failure, unspecified;Calculus of ureter;Severe sepsis with septic shock;UTI/ Urinary tract infection, site not specified Presentation: 07/06 15:35 Chief complaint: EMS states: they were called for a patient that has been vomiting ap3 since yesterday. family informed EMS that patient has been mentally altered today. patient is oriented to self at time of triage. Coronavirus screen: Client presents with at least one sign or symptom that may indicate coronavirus-19. Ebola Screen: No symptoms or risks identified at this time. Initial Sepsis Screen: Does the patient meet any 2 criteria? RR > 20 per min. Temp <36.0*C (96.8*F)) or > 38.3*C (100.9*F). Altered Mental Status. HR > 90 bpm. Yes Does the patient have a suspected source of infection? No. Patient's initial sepsis screen is negative. Risk Assessment: Do you want to hurt yourself or someone else? Patient reports no desire to harm self or others. Onset of symptoms was July 06, 2023. 15:35 Method Of Arrival: EMS: [facility] ap3 15:35 Acuity: JANET 2 ap3 Triage Assessment: 15:40 General: Appears ill, Behavior is calm. Pain: Complains of pain in abdomen and ap3 generalized body aches. Neuro: Level of Consciousness is awake, Oriented to person. Cardiovascular: Patient's skin is warm and dry. Respiratory: Airway is patent Respiratory effort is even, unlabored, Respiratory pattern is tachypnea. GI: Reports nausea, vomiting. Historical: - Allergies: 15:37 HYDROCODONE; ap3 15:37 Percodan; ap3 15:37 Ferriecit; ap3 15:37 surgical meek; ap3 - PMHx: 15:37 crohns; macular degeneration (crohns); Anemia; trigeminal neuralgia; Osteoarthritis; ap3 - Immunization history:: Client reports receiving the 2nd dose of the Covid vaccine. - Infectious Disease History:: Denies. - Social history:: Smoking status: Patient denies any tobacco usage or history of. Screenin:20 Kacie Swallow Protocol Exclusion Criteria: Brief Cognitive Screen What is your name? ap3 Normal, Where are you right now? Abnormal What year is it? Abnormal Oral Mechanism Examination Facial Symmetry: Normal, Motion: Normal, Lip Closure: Normal, Oral Mechanism Result: Normal. 3 oz Water Swallow Challenge: Pt able to drink all water without stopping, coughing, choking or throat clearing: No Result: FAIL MD Notified: Zachary FERREIRA. 16:23 Abuse screen: Denies threats or abuse. Nutritional screening: No deficits noted. ap3 Tuberculosis screening: No symptoms or risk factors identified. 19:10 [facility] ED Fall Risk Assessment (Adult) History of falling in the last 3 months, jw7 including since admission No falls in past 3 months (0 pts) Confusion or Disorientation Yes (5 pts) Intoxicated or Sedated No (0 pts) Impaired Gait No (0 pts) Mobility Assist Device Used No (0 pt) Altered Elimination Yes (1 pt) Score/Fall Risk Level 3 or more points = High Risk Oriented to surroundings, Maintained a safe environment, Educated pt \\T\\ family on fall prevention, incl call for assistance when getting out of bed, Assessed \\T\\ reinforced patient's understanding of fall precautions, Provided non-skid footwear, Hourly rounding (assess needs \\T\\ fall precautionary measures) done. Assessment: 18:14 General: Appears in no apparent distress. comfortable, Behavior is calm, cooperative, ld1 appropriate for age. Pain: Denies pain. Neuro: Level of Consciousness is awake, alert, obeys commands, Oriented to person, place, time, situation. Cardiovascular: Capillary refill < 3 seconds Patient's skin is warm and dry. Respiratory: Airway is patent Respiratory effort is even, labored. GI: Abdomen is round non-distended, Reports diarrhea, nausea, vomiting. : No signs and/or symptoms were reported regarding the genitourinary system. EENT: No signs and/or symptoms were reported regarding the EENT system. Derm: Skin temperature is warm. Musculoskeletal: No signs and/or symptoms reported regarding the musculoskeletal system. 19:10 General: Appears in no apparent distress. comfortable, Behavior is calm, cooperative, jw7 appropriate for age. Pain: Denies pain. Neuro: Level of Consciousness is awake, alert, obeys commands, Oriented to person, place, time, situation. Cardiovascular: Capillary refill < 3 seconds Patient's skin is warm and dry. Respiratory: Airway is patent Trachea midline Respiratory effort is even, unlabored, Respiratory pattern is regular, symmetrical, tachypnea. GI: Abdomen is round non-distended, Reports diarrhea, nausea, vomiting. : No signs and/or symptoms were reported regarding the genitourinary system. EENT: No signs and/or symptoms were reported regarding the EENT system. Derm: Skin is intact, is healthy with good turgor, Skin is dry, Skin is normal, Skin temperature is warm. Musculoskeletal: Circulation, motion, and sensation intact. Range of motion: intact in all extremities. 20:00 Reassessment: Patient appears in no apparent distress at this time. No changes from [facility] previously documented assessment. Patient and/or family updated on plan of care and expected duration. Pain level reassessed. Patient is alert, oriented x 3, equal unlabored respirations, skin warm/dry/pink. 20:44 General: Attempted to call Report to [facility] ICU, Nurse Lily stated "I didn't [facility] know we where getting a transfer patient, could you please call back in 30 minutes" . 21:00 Reassessment: Patient appears in no apparent distress at this time. No changes from [facility] previously documented assessment. Patient and/or family updated on plan of care and expected duration. Pain level reassessed. Patient is alert, oriented x 3, equal unlabored respirations, skin warm/dry/pink. 07/07 08:35 Reassessment: Lab reports positive blood cultures, gram negative rods in all four hb bottles. Report given to charge nurse Lakshmi at [facility]. 10:32 Reassessment: Preliminary blood culture result faxed to [facility] 5th floor [phone]. hb Vital Signs: 07/06 15:35 BP 125 / 61; Pulse 121; Resp 27; Temp 101.7; Pulse Ox 95% on R/A; Weight 61.69 kg (M); ap3 16:23 BP 107 / 56; Pulse 123; Resp 28; Pulse Ox 96% on R/A; ap3 17:45 BP 92 / 47; Pulse 114; Resp 27; Temp 99(O); Pulse Ox 94% on R/A; ld1 18:14 BP 96 / 44; Pulse 108; Resp 26; Pulse Ox 96% on R/A; ld1 18:59 BP 98 / 47; Pulse 113; Resp 18; Pulse Ox 96% on R/A; ld1 19:30 BP 101 / 50; Pulse 104; Resp 23 S; Pulse Ox 95% on R/A; jw7 18:59 Notified ERP of VS. ld1 ED Course: 15:35 Patient arrived in ED. ap3 15:37 Triage completed. ap3 15:41 Zachary Connor PA is PHCP. cp 15:41 Jose Snyder DO is Attending Physician. cp 15:41 Arm band placed on right wrist. ap3 15:41 Patient has correct armband on for positive identification. Bed in low position. Call ap3 light in reach. Side rails up X2. box spring upholsterer on. Pulse ox on. NIBP on. 16:00 Inserted saline lock: 22 gauge in right forearm, using aseptic technique. Blood ap3 collected. 16:00 First set of blood cultures drawn by nm. ap3 16:06 Laila Marcos, YVON is Primary Nurse. ap3 16:15 EKG done, by ED staff, reviewed by Zachary FERREIRA. jr12 16:24 COVID swab sent to lab. ap3 16:40 Chest Single View XRAY In Process Unspecified. EDMS 16:53 PHCP role handed off by Zachary Connor PA kb 16:53 Freda Miller FNP-C is PHCP. kb 17:11 CT Head Brain wo Cont In Process Unspecified. EDMS 17:11 CT Chest Abdomen Pelvis W/O Contrast In Process Unspecified. EDMS 18:02 Urinalysis w/ reflexes Sent. ld1 18:02 King cath inserted, using sterile technique, 16 Fr., by cylinder machine operator, balloon inflated, to ld1 gravity drainage, urine specimen collected. 19:09 [facility] called for transfer, spoke with Tita Borges. ty 19:10 Provided Education on: Use of Call Light. jw7 19:55 No provider procedures requiring assistance completed. jw7 20:09 Delayed Bet Taker due to active code at facility. ty 20:17 Xal4Nej Initiated. ty 20:22 Notified Nurse Practitioner and/or Physician Transmitter Engineer of a critical lab result(s), cm10 Lactic 3.5. 21:36 [facility] contacted for patient transport, ETA 15 min. ty 22:20 Patient transferred, IV remains in place. lg3 Administered Medications: 16:00 Drug: Acetaminophen PO 1000 mg PO once Route: PO; ap3 22:21 Follow up: Response: No adverse reaction; Marked relief of symptoms lg3 16:38 Not Given (Physician Discretion): ns 0.9% 1000 ml IV at 999 ml/hr Per protocol; 1000 mL cp bolus 16:51 Drug: NS 0.9% IV (30 ml/kg) 30 ml/kg IV at bolus once; Sepsis Protocol Route: IV; Rate: ap3 bolus; Site: right forearm; 22:21 Follow up: IV Status: Completed infusion lg3 18:02 Drug: Cefepime IVPB 1 grams IVPB at 200 ml/hr once over 30 mins; (mix in NS 100 mL) ld1 Route: IVPB; Rate: 200 ml/hr; Infused Over: 30 mins; Site: right antecubital; 22:20 Follow up: Response: No adverse reaction; IV Status: Completed infusion; IV Intake: lg3 100ml Medication: 16:23 VIS not applicable for this client. ap3 Intake: 22:20 IV: 100ml; Total: 100ml. lg3 Outcome: 20:23 ER care complete, transfer ordered by . kb 22:19 Transferred by [facility] to [facility], Transfer form completed. lg3 22:19 Condition: stable 22:19 Instructed on the need for transfer, Demonstrated understanding of instructions, 22:21 Patient left the ED. lg3 Signatures: Dispatcher [employer] EDMS Freda Miller, COMMUNICABLE DISEASE SPECIALIST-C COMMUNICABLE DISEASE SPECIALIST-CkZachary Busch PA PA cp Baxter, Heather, RN RN hb Prokisch, Amanda RN RN ap3 Caroline Schafer RN RN lg3 Chelsea Snyder RN RN ld1 Maryjo Adams RN RN jw7 Radha Kinney RN RN cm10 Xena Lawrence jr Walter Campbell ty Corrections: (The following items were deleted from the chart) 19:11 19:10 Acetaminophen PO 500 mg PO ap3 ap3 19:22 19:09 [facility] called for transfer, spoke with XXXXXX ty ty
--- NOTE | 2023-07-07 20:24 | EDPHYS ---
Physician Documentation [facility] Name: Sabrina Pool Age: 77 yrs Sex: Female : 1945 Arrival Date: 07/07/2023 Time: 15:29 Bed 8 Private MD: ED Physician Jose Snyder HPI: 07/06 16:05 This 77 yrs old Female presents to ER via EMS with complaints of Altered Mental Status. cp 16:05 The patient presents with confusion. Onset: The symptoms/episode began/occurred today. cp Associated signs and symptoms: Pertinent positives: chronic diarrhea and vomiting since yesterday, Pertinent negatives: abdominal pain, chest pain, headache. Patient's baseline: Neuro: alert and fully oriented, Motor: no deficits, Ambulation: walks without assistance, Speech: normal. Unable to obtain HPI due to altered mental status. Historical: - Allergies: 15:37 HYDROCODONE; ap3 15:37 Percodan; ap3 15:37 Ferriecit; ap3 15:37 surgical meek; ap3 - PMHx: 15:37 crohns; macular degeneration (crohns); Anemia; trigeminal neuralgia; Osteoarthritis; ap3 - Immunization history:: Client reports receiving the 2nd dose of the Covid vaccine. - Infectious Disease History:: Denies. - Social history:: Smoking status: Patient denies any tobacco usage or history of. ROS: 16:09 Constitutional: Positive for fever, cp 16:09 Abdomen/GI: Positive for vomiting, diarrhea, 16:09 Neuro: Positive for altered mental status, 16:09 Unable to obtain ROS due to altered mental status, 21:05 Constitutional: As per HPI kb Exam: 16:13 ECG was reviewed by the Attending Physician. cp 16:15 Constitutional: The patient appears in no acute distress, non-diaphoretic, well cp developed, well nourished, obviously ill, 16:15 Head/Face: Normocephalic, atraumatic. cp 16:15 Eyes: Periorbital structures: appear normal, Pupils: equal, round, and reactive to light and accomodation, Conjunctiva: normal, no exudate, no injection, Sclera: no appreciated abnormality, Lids and lashes: appear normal, bilaterally, 16:15 ENT: External ear(s): are unremarkable, Nose: is normal, Mouth: Lips: dry, Oral mucosa: moist, Posterior pharynx: Airway: no evidence of obstruction, patent, 16:15 Neck: ROM/movement: Meningeal signs: are not present, nuchal rigidity, is not appreciated, 16:15 Chest/axilla: Inspection: normal, Palpation: is normal, no crepitus, no tenderness, 16:15 Cardiovascular: Rate: tachycardic, Rhythm: regular, Edema: is not appreciated, JVD: is not appreciated, 16:15 Respiratory: the patient does not display signs of respiratory distress, Respirations: normal, no use of accessory muscles, no retractions, labored breathing, is not present, Breath sounds: are clear throughout, no decreased breath sounds, no stridor, no wheezing, Vital Signs: 15:35 BP 125 / 61; Pulse 121; Resp 27; Temp 101.7; Pulse Ox 95% on R/A; Weight 61.69 kg (M); ap3 16:23 BP 107 / 56; Pulse 123; Resp 28; Pulse Ox 96% on R/A; ap3 17:45 BP 92 / 47; Pulse 114; Resp 27; Temp 99(O); Pulse Ox 94% on R/A; ld1 18:14 BP 96 / 44; Pulse 108; Resp 26; Pulse Ox 96% on R/A; ld1 18:59 BP 98 / 47; Pulse 113; Resp 18; Pulse Ox 96% on R/A; ld1 19:30 BP 101 / 50; Pulse 104; Resp 23 S; Pulse Ox 95% on R/A; jw7 18:59 Notified ERP of VS. ld1 MDM: 15:41 Patient medically screened. cp 16:45 Transition of care: After a detail discussion of the patient's case, care is cp transferred to [facility]. 16:56 ED course: sepsis reevaluation complete. kb 18:57 Differential Diagnosis: sepsis, UTI, volume depletion. Data reviewed: vital signs, kb nurses notes. Consideration of Admission/Observation Escalation of care including admission/observation considered. pt will be transferred due to lack of urologist coverage. Historians other than the Patient: Spouse/Significant Other: . Counseling: I had a detailed discussion with the patient and/or guardian regarding the historical points, exam findings, and any diagnostic results supporting the discharge/admit diagnosis, lab results, radiology results, the need to transfer to another facility, [facility] does not immediately have the required specialist. 20:21 Management of patient was discussed with the following: Dr Ray, steel inspector at [facility], accepts pt for transfer. 07/06 15:45 Order name: Blood Culture Adult (2) cp 07/06 15:45 Order name: CBC with Diff; Complete Time: 20:06 cp 07/06 16:38 Interpretation: Normal except: WBC 22.60; HGB 11.5; MCHC 31.2; MEGHANN% 96.9; LYM% 1.1; MN% cp 1.7; NEUT A 21.9; LYMA 0.2. 07/06 15:45 Order name: CMP; Complete Time: 16:53 cp 07/06 15:45 Order name: Lactate w/ 2H reflex if indic.; Complete Time: 16:38 cp 07/06 15:45 Order name: Protime (+inr); Complete Time: 16:38 cp 07/06 15:45 Order name: Ptt, Activated; Complete Time: 16:38 cp 07/06 15:45 Order name: Urinalysis w/ reflexes; Complete Time: 18:31 cp 07/06 15:45 Order name: COVID-19/FLU A+B/RSV; Complete Time: 17:06 cp 07/06 18:17 Order name: Urine Culture EDAZ 07/06 19:54 Order name: Manual Differential; Complete Time: 20:06 EDAZ 07/06 20:22 Order name: Lactate Sepsis 2 HR Follow-up; Complete Time: 20:23 EDAZ 07/06 15:45 Order name: Chest Single View XRAY; Complete Time: 17:46 cp 07/06 16:41 Order name: CT Head Brain wo Cont; Complete Time: 17:31 cp 07/06 16:46 Order name: CT Chest Abdomen Pelvis W/O Contrast; Complete Time: 17:46 cp 07/06 15:45 Order name: EKG; Complete Time: 15:45 cp 07/06 15:45 Order name: Accucheck; Complete Time: 16:57 cp 07/06 15:45 Order name: Cardiac monitoring; Complete Time: 16:00 cp 07/06 15:45 Order name: EKG - Nurse/Tech; Complete Time: 16:33 cp 07/06 15:45 Order name: IV Saline Lock - Large Bore; Complete Time: 16:00 cp 07/06 15:45 Order name: Labs collected and sent; Complete Time: 16:00 cp 07/06 15:45 Order name: O2 Per Protocol; Complete Time: 16:00 cp 07/06 15:45 Order name: O2 Sat Monitoring; Complete Time: 16:00 cp 07/06 15:45 Order name: Vital Signs; Complete Time: 16:00 cp 07/06 17:07 Order name: Vital Signs; Complete Time: 17:45 kb 07/06 18:02 Order name: King; Complete Time: 18:03 ld1 07/06 19:14 Order name: Misc. Order: draw repeat lactate please; Complete Time: 19:52 kb EC:13 Rate is 118 beats/min. Rhythm is regular. WI interval is normal. QRS interval is cp normal. QT interval is normal. T waves are Inverted in lead aVR. Interpreted by me. Reviewed by me. Administered Medications: 16:00 Drug: Acetaminophen PO 1000 mg PO once Route: PO; ap3 22:21 Follow up: Response: No adverse reaction; Marked relief of symptoms lg3 16:38 Not Given (Physician Discretion): ns 0.9% 1000 ml IV at 999 ml/hr Per protocol; 1000 mL cp bolus 16:51 Drug: NS 0.9% IV (30 ml/kg) 30 ml/kg IV at bolus once; Sepsis Protocol Route: IV; Rate: ap3 bolus; Site: right forearm; 22:21 Follow up: IV Status: Completed infusion lg3 18:02 Drug: Cefepime IVPB 1 grams IVPB at 200 ml/hr once over 30 mins; (mix in NS 100 mL) ld1 Route: IVPB; Rate: 200 ml/hr; Infused Over: 30 mins; Site: right antecubital; 22:20 Follow up: Response: No adverse reaction; IV Status: Completed infusion; IV Intake: lg3 100ml Disposition: 17:37 I was immediately available on-site in the Emergency Department for consultation in the hi3 care of the patient. Disposition Summary: 07/07/23 20:23 Transfer Ordered Notes: Transfer Location: Other [facility] kb Reason: Higher level of care kb Condition: Stable kb Problem: new kb Symptoms: are unchanged kb Accepting Physician: Dr Ray(07/07/23 22:21) lg3 Diagnosis - Acute kidney failure, unspecified kb - Calculus of ureter kb - Severe sepsis with septic shock kb - UTI/ Urinary tract infection, site not specified kb Forms: - Medication Reconciliation Form kb - SBAR form kb Signatures: Dispatcher [employer] EDMS Freda Miller, ACCESS REP-C ACCESS REP-Ckb Zachary Connor PA PA cp Prokisch, Amanda, RN RN ap3 Caroline Schafer, RN RN lg3 SnyderJose, DO ms3 SnyderChelsea, RN RN ld1 Corrections: (The following items were deleted from the chart) 15:45 15:45 BLOOD CULTURE*+BA.LAB.BRZ ordered. EDMS EDMS 15:45 15:45 CBC+H.LAB.BRZ ordered. EDMS EDMS 15:45 15:45 COMPREHENSIVE METABOLIC PANEL+C.LAB.BRZ ordered. EDMS EDMS 15:45 15:45 LACTATE+C.LAB.BRZ ordered. EDMS EDMS 15:45 15:45 PROTIME (+INR)+COAG.LAB.BRZ ordered. EDMS EDMS 15:45 15:45 PTT, ACTIVATED+COAG.LAB.BRZ ordered. EDMS EDMS 15:46 15:45 Urinalysis+U.LAB.BRZ ordered. EDMS EDMS 15:46 15:45 COVID-19/FLU A+B/RSV+MOL.LAB.BRZ ordered. EDMS EDMS 16:46 16:46 Chest Abdomen Pelvis Wo Con+CT.RAD.BRZ ordered. EDMS EDMS 16:51 16:41 Chest Abdomen Pelvis W Con+CT.RAD.BRZ ordered. EDMS EDMS 22:21 20:23 Dr Ray kb lg3
[2023-07-07 22:39] VITALS: BP 101/50; TEMP 99; O2SAT 95
--- NOTE | 2023-07-11 14:27 | EKG ---
Test Date: 2023-07-07 Test Time: 16:10:33 Jewellery Designer: DANIELLE MEASUREMENT RESULTS: Intervals: Rate: 118 SD: 124 QRSD: 68 QT: 298 QTc: 417 [place]: P: 76 SD: 124 QRS: 74 T: 71 INTERPRETIVE STATEMENTS: Sinus tachycardia Cannot rule out Anterior infarct, age undetermined Abnormal ECG Compared to ECG 01/28/2021 13:00:50 Myocardial infarct finding now present Sinus rhythm no longer present Electronically Signed On 07-11-23 14:15:31 CDT by Jorge Alberto Rosario
== END 2023-07-07 22:21 | disposition short-term general hospital (02) ==
LOC: ER 15:29
DX: N17.9 Acute kidney failure, unspecified (principal); N39.0 Urinary tract infection, site not specified; R65.21 Severe sepsis with septic shock; N20.1 Calculus of ureter; Z11.52 Encounter for screening for COVID-19; Z88.5 Allergy status to narcotic agent; Z88.8 Allergy status to other drugs, medicaments and biological substances; Z91.048 Other nonmedicinal substance allergy status
CPT/HCPCS: 93005; 87040 ×2; 87088; 85025; 81001; 87086; 36415; 87205 ×4; 85610; 83605 ×2; 85730; 87077 ×3; 87186 ×3; 80053; 0241U; 70450; 71250; 74176; 71045; 51702; 99285; J7030 ×2; J0692